=== PATIENT | female | born 1950 | race Caucasian/White ===

== ENCOUNTER 2017-05-15 11:02 | Inpatient (IN) | payer MEDICARE, MEDICAID ==
[2017-05-15 11:37] LABS: Hematocrit 36.6 % (37.0-47.0); Hemoglobin 11.7 gm/dL (12.5-16.0); Mean Corpuscular Hemoglobin 29.1 pg (27-31); Mean Platelet Volume 9.6 fl (6.0-9.5); Platelet Count 292 K/mm3 (150-450); Red Blood Count 4.02 M/mm3 (4.2-5.4); Red Cell Distribution Width 13.7 % (11.5-14.0); White Blood Count 16.5 K/mm3 (4.0-10.5)
[2017-05-15 11:39] LABS: Total Cells Counted 100
[2017-05-15] MEDS ORDERED: MORPHINE SULFATE 4 MG/ML SYRG IV ONE ×2 (11:46→12:42)
[2017-05-15] MEDS ORDERED: MORPHINE SULFATE 4 MG/ML SYRG ONE ×2 (11:49→12:40)
--- NOTE | 2017-05-15 11:52 | ERNOTE ---
Lower Extremity HPI - General Lower Extremities Pain: knee: bilateral - left is considerably worse than the right Time Seen by Provider: 05/15/17 11:17 Source: patient Exam Limitations: no limitations - Immun/Allergies/Home Medications Immunizations: IMMUNIZATION HX Immunizations Up to Date Yes History of Influenza Vaccine No Hx Pneumococcal Vaccination No Allergies/Adverse Reactions: Allergies Allergy/AdvReac Type Severity Reaction Status Date / Time adhesive tape Allergy Intermediate Hives Verified 05/15/17 11:05 Sulfa (Sulfonamide Allergy Intermediate Hives Verified 05/15/17 11:05 Antibiotics) Home Medications: HOME MEDICATIONS HYDROcodone/ACETAMINOPHEN [Hydrocodone-Acetamin 10-325 mg] 1 tab PO Q6H [Last Taken Unknown] Hydrochlorothiazide [Hydrodiuril] 25 mg PO BID 01/31/16 [Last Taken Unknown] Oxybutynin Chloride [Ditropan Xl] 10 mg PO DAILY 01/31/16 [Last Taken Unknown] Bumetanide 2 mg PO DAILY 05/15/17 [Last Taken Unknown] Furosemide [Lasix] 60 mg PO BID 05/15/17 [Last Taken Unknown] Ibuprofen 800 mg PO TID 05/15/17 [Last Taken Unknown] Lisinopril [Zestril] 2.5 mg PO DAILY 05/15/17 [Last Taken Unknown] Potassium Chloride [K-Dur] 20 meq PO DAILY 05/15/17 [Last Taken Unknown] Verapamil HCl [Verapamil ER] 100 mg PO HS 05/15/17 [Last Taken Unknown] - History of Present Illness Narrative: Patient states that while she has chronic swelling of both lower extremities with some degree of erythema that the left on his gotten markedly worse and more swollen and painful. She states this is what happens when she gets cellulitis and complains of pain moderate to severe in intensity. Occurred: other - progressive over the last 3-4 days Method of Injury: Reports: no apparent injury Loss of Consciousness: Reports: no loss of consciousness Associated Symptoms: Reports: other injuries - painful weightbearing Other Injuries: Reports: none Review of Systems - Review of Systems EYE: Present: no symptoms reported ENT: Present: no symptoms reported Respiratory: Present: no symptoms reported Cardiology: Present: no symptoms reported Gastrointestinal/Abdominal: Present: no symptoms reported Genitourinary: Present: no symptoms reported Musculoskeletal: Present: See HPI Skin: Present: no symptoms reported Neurological: Present: no symptoms reported Endocrine: Present: no symptoms reported Hematologic/Lymphatic: Present: no symptoms reported Psych: Present: no symptoms reported - Patient's Past Medical History Patient History - Medical: Obesity, Other - cellulitis Patient History - Cardiac/Respiratory: COPD Patient History - Cancer: No Hx of Cancer Patient History - Surgical Procedures: Appendectomy, , Hysterectomy, Other Patient History - Other: None LMP (females 10-50): Menopausal - Social History Living Situations: home Abuse History: No History of abuse Psych History: No pertinent hx Smoking Status: Never smoker Have you smoked in the past 12 months: No Do you dip or chew tobacco: No Alcohol Use: none Drug Use: none - Immunizations Immunizations Up to Date: Yes Hx Pneumococcal Vaccination: No History of Influenza Vaccine: No Physical Exam - Physical Exam General Appearance: Present: wd/wn, alert, moderate distress Head Exam: Present: normal inspection, no evidence of injury Eye Exam: Normal inspection: bilateral, PERRL: bilateral Ears, Nose, Throat: Present: normal ENT inspection, H, normal pharynx Neck: Present: normal inspection, nontender Respiratory: Present: no accessory muscle use, chest nontender, lungs clear, respiratory distress - mild, decreased breath sounds Cardiovascular/Chest: Present: regular rate, rhythm, no murmur, normal peripheral pulses Gastrointestinal/Abdominal: Present: normal bowel sounds, nontender, nondistended, soft, no organomegaly Rectal Exam: Present: deferred Back Exam: Present: normal inspection, normal range of motion Extremity Exam: Present: non-tender, decreased range of motion, calf tenderness , extremity edema Neurological Exam: Present: alert, oriented, normal mood/affect Skin Exam: Present: normal color, warm/dry Lymphatic Exam: Present: no adenopathy ED Progress - Results and Orders Patient's Lab Results:: I have reviewed the patient's lab results. - Vital Signs Patient's Vital Signs:: I have reviewed the patient's vital signs. Vital Signs: Vital Signs 05/15/17 11:05 Temperature 37.3 C Pulse Rate 84 Respiratory 24 H Rate Blood Pressure 127/68 O2 Sat by Pulse 92 Oximetry - X-Ray X-Ray #1 X-Ray: chest Interpretation: Reviewed by me - CT/Ultrasound CT/Ultrasound Narrative: Ultrasound of the lower extremity was reviewed by me - Progress/Reassessment Chief Complaint: Lower Extremity Pain/ Injury Plan - Plan Plan: I discussed the case with Dr. Webster and patient will be admitted for IV antibiotics, pain management and then we will have to look into some sort of possible home health care for ongoing care with her. Departure Clinical Impression: Cellulitis Qualifiers: Site of cellulitis: extremity Site of cellulitis of extremity: lower extremity Laterality: left Qualified Code(s): L03.116 - Cellulitis of left lower limb - Departure Disposition: [facility] Condition: Fair
[2017-05-15 11:53] LABS: Albumin * 2.4 gm/dl (3.4-5.0); Anion Gap 10.3 mmol/L (6.8-13.8); BUN/Creatinine Ratio 32.6 (9.0-21.6); Bilirubin, Total 0.8 mg/dL (0.0-1.1); Ca. Corrected For Albumin 9.6 mg/dL (8.4-10.2); Calcium * 8.6 mg/dL (7.9-10.9); Carbon Dioxide 29.1 mmol/L (24-32.6); Immature Granulocyte 1 (0-1); Lymphocyte 14 % (20-51); Magnesium 1.9 mg/dL (1.2-2.8); Monocyte 4 % (0-9); Neutrophil 81 % (42-75); Neutrophil # 13.4 K/mm3 (1.3-6.0); Potassium 4.4 mmol/L (3.4-4.6); Total Protein 6.9 gm/dL (6.2-8.2)
[2017-05-15 11:54] LABS: Platelet Estimate Normal (NORMAL); RBC Morphology Normal (NORMAL)
[2017-05-15 12:05] LABS: CRP 30.8 mg/dL (0.0-0.9)
[2017-05-15] MEDS ORDERED: LEVOFLOXACIN IN DEXTROSE 5 % 750 MG/150 ML BAG IV ONE (12:43)
[2017-05-15] MEDS: HYDROcodone/ACETAMINOPHEN 1 EACH TABLET PO PRN ×2 (16:49→21:53)
[2017-05-15] MEDS: MORPHINE SULFATE 4 MG/ML SYRG IV PRN (19:38)
[2017-05-15] MEDS ORDERED: HYDROCODONE PO SCH (20:45)
[2017-05-15] MEDS ORDERED: ACETAMINOPHEN PO SCH (20:45)
[2017-05-15] MEDS ORDERED: [UNRECOGNIZED DRUG - OTHER] PO SCH (20:45)
[2017-05-15] MEDS: OXYBUTYNIN CHLORIDE 5 MG TABLET PO SCH (21:53)
--- NOTE | 2017-05-15 23:26 | HP ---
Chief Complaint - Chief Complaint Date of Service: 05/15/17 Time of Service: 16:30 Chief Complaint: Left leg pain, redness History of Present Illness: Alvina is a 66 yo female with morbid obesity, COPD, and chronic lower extremity edema on diuretics. She reports over the past week increasing redness and pain in left leg. She denies any change in medication or diet. But she has worsening of activity and is unable to bear weight on her left leg due to pain. She has not had any drainage. She has a chronic wound that is treated at [place], [place] following a panniculectomy about two years ago. It has not healed but is in its usual state and is not red or worse. - Patient's Past Medical History Patient History - Medical: Obesity Patient History - Cardiac/Respiratory: COPD Patient History - Cancer: No Hx of Cancer Patient History - Surgical Procedures: Appendectomy, , Hysterectomy, Other Patient History - Other: None LMP (females 10-50): Menopausal - Family History Father Family History - Medical: No pertinent hx Family History - Cardiac/Respiratory: No pertinent hx Family History - Cancer: No pertinent family hx - Social History Living Situations: alone Abuse History: No History of abuse Psych History: No pertinent hx Smoking Status: Never smoker Have you smoked in the past 12 months: No Do you dip or chew tobacco: No Patient requests Smoking Cessation Consult: No Initiate information on Smoking Cessation: No Alcohol Use: none Drug Use: none - Immunizations Immunizations Up to Date: Yes Hx Pneumococcal Vaccination: No History of Influenza Vaccine: No Review Of Systems (GEN) - Review of Systems Generalized/Overall Review: Present: Weakness, Chills, Fever, Malaise, Fatigue EENTM: Present: No Symptoms Reported Respiratory: Present: No Symptoms Reported Cardiac: Present: No Symptoms Reported Abdominal: Present: No Symptoms Reported Genitourinary: Present: No Symptoms Reported Musculoskeletal: Present: No Symptoms Reported Neurological: Present: No Symptoms Reported Skin: Present: Change in Color - Redness to left leg Endocrine: Present: No Symptoms Reported Allergies/Adverse Reactions: Allergies Allergy/AdvReac Type Severity Reaction Status Date / Time adhesive tape Allergy Intermediate Hives Verified 05/15/17 14:47 Sulfa (Sulfonamide Allergy Intermediate Hives Verified 05/15/17 14:47 Antibiotics) Home Medications: HOME MEDICATIONS HYDROcodone/ACETAMINOPHEN [Hydrocodone-Acetamin 10-325 mg] 1 tab PO Q6H [Last Taken Unknown] Hydrochlorothiazide [Hydrodiuril] 25 mg PO BID 01/31/16 [Last Taken Unknown] Oxybutynin Chloride [Ditropan Xl] 10 mg PO DAILY 01/31/16 [Last Taken Unknown] Bumetanide 2 mg PO DAILY 05/15/17 [Last Taken Unknown] Furosemide [Lasix] 60 mg PO BID 05/15/17 [Last Taken Unknown] Ibuprofen 800 mg PO TID 05/15/17 [Last Taken Unknown] Lisinopril [Zestril] 2.5 mg PO DAILY 05/15/17 [Last Taken Unknown] Potassium Chloride [K-Dur] 20 meq PO DAILY 05/15/17 [Last Taken Unknown] Verapamil HCl [Verapamil ER] 120 mg PO HS 05/15/17 [Last Taken Unknown] Exam - Exam Vital Signs: Vital Signs - Last Taken Temp 36.7 C 05/15/17 22:59 Pulse 78 05/15/17 22:59 Resp 18 05/15/17 22:59 BP 150/62 05/15/17 22:59 Pulse Ox 96 05/15/17 22:59 Constitutional: Present: Alert, Oriented x3, Cooperative, Morbidly obese ENT Exam: Present: hearing grossly normal Eye Exam: bilateral eye: normal inspection Respiratory: Present: lungs clear, decreased breath sounds Cardiovascular/Chest: Present: regular rate, rhythm, no murmur Abdomen: Present: Normal bowel sounds, soft, nontender, nondistended, no rebound tenderness, no hepatospenomegaly Skin Exam: Present: other - Red anterior left lower leg from toes to just below left knee. No drainage. Right leg has chronic hyperpigmentation to right anterior lower leg. Appearance: Present: appropriate appearance, appropriate insight Eye contact: Present: cooperative, good eye contact, normal speech Thoughts: Present: normal thought pattern, no apparent hallucination Diagnostic Studies: Laboratory Results WBC 16.5 K/mm3 (4.0-10.5) H 05/15/17 11:30 RBC 4.02 M/mm3 (4.2-5.4) L 05/15/17 11:30 Hgb 11.7 gm/dL (12.5-16.0) L 05/15/17 11:30 Hct 36.6 % (37.0-47.0) L 05/15/17 11:30 MCV 91.0 fl (78-100) 05/15/17 11:30 MCH 29.1 pg (27-31) 05/15/17 11:30 MCHC 32.0 g/dl (32-36) 05/15/17 11:30 RDW 13.7 % (11.5-14.0) 05/15/17 11:30 Plt Count 292 K/mm3 (150-450) 05/15/17 11:30 MPV 9.6 fl (6.0-9.5) H 05/15/17 11:30 Neutrophils % (Manual) 81 % (42-75) H 05/15/17 11:30 Lymphocytes % (Manual) 14 % (20-51) L 05/15/17 11:30 Monocytes % (Manual) 4 % (0-9) 05/15/17 11:30 Immature Granulocytes 1 (0-1) 05/15/17 11:30 Neutrophils # (Manual) 13.4 K/mm3 (1.3-6.0) H 05/15/17 11:30 Lymphocytes # (Manual) 2.3 k/mm3 (1.5-3.5) 05/15/17 11:30 Monocytes # (Manual) 0.7 k/mm3 (0.0-1.0) 05/15/17 11:30 Platelet Estimate Normal (NORMAL) 05/15/17 11:30 RBC Morphology Normal (NORMAL) 05/15/17 11:30 ESR 30 mm/hr (0-15) H 05/15/17 11:30 Sodium 142 mmol/L (132-142) 05/15/17 11:30 Plasma Sodium 143 mmol/L (130-142) H 05/15/17 11:30 Potassium 4.4 mmol/L (3.4-4.6) 05/15/17 11:30 Chloride 107 mmol/L (97-106) H 05/15/17 11:30 Carbon Dioxide 29.1 mmol/L (24-32.6) 05/15/17 11:30 Anion Gap 10.3 mmol/L (6.8-13.8) 05/15/17 11:30 BUN 46 mg/dL (3-23) H 01/08/18 11:30 Creatinine 1.41 mg/dL (0.4-1.4) H 05/15/17 11:30 Est GFR (Non-Af Amer) 40 mL/min (60-130) L D 05/15/17 11:30 BUN/Creatinine Ratio 32.6 (9.0-21.6) H 05/15/17 11:30 Random Glucose 144 mg/dL (70-110) H 05/15/17 11:30 Calcium 8.6 mg/dL (7.9-10.9) 05/15/17 11:30 Calcium Adj for Albumin 9.6 mg/dL (8.4-10.2) 05/15/17 11:30 Magnesium 1.9 mg/dL (1.2-2.8) 05/15/17 11:30 Total Bilirubin 0.8 mg/dL (0.0-1.1) 05/15/17 11:30 AST 14 U/L (0-48) 05/15/17 11:30 ALT 20 U/L (19-67) 05/15/17 11:30 Alkaline Phosphatase 154 U/L (50-170) 05/15/17 11:30 C-Reactive Prot, Quant 30.8 mg/dL (0.0-0.9) H 05/15/17 11:30 Total Protein 6.9 gm/dL (6.2-8.2) 05/15/17 11:30 Albumin 2.4 gm/dl (3.4-5.0) L 05/15/17 11:30 Assessment/Plan - Narrative Narrative: Alvina is a 66 yo female with: 1) Cellulitis of Left Lower Extremity - Will treat with Levaquin. Will give hydrocodone for moderate pain and morphine for severe pain. Will monitor labs. Will bal skin to show area of cellulitis and monitor. Will admit to observation and expect 1 midnight. If improved tomorrow, controlled pain, and able to ambulate will discharge to home. 2) Acute renal failure - Creatinine 1.4 elevated above baseline. Will hold diuretics today. Will give lasix prn for edema. - Assessment/Plan (1) Cellulitis Problem: Acute Qualifiers: Site of cellulitis: extremity Site of cellulitis of extremity: lower extremity Laterality: left Qualified Code(s): L03.116 - Cellulitis of left lower limb
[2017-05-16] MEDS: MORPHINE SULFATE 4 MG/ML SYRG IV PRN ×4 (00:07→14:25)
[2017-05-16] MEDS: HYDROcodone/ACETAMINOPHEN 1 EACH TABLET PO PRN (04:23)
[2017-05-16 05:57] LABS: Hematocrit 37.1 % (37.0-47.0); Hemoglobin 11.6 gm/dL (12.5-16.0); Mean Cell Volume 93.2 fl (78-100); Mean Corpuscular Hemoglobin 29.1 pg (27-31); Mean Corpuscular Hgb Conc 31.3 g/dl (32-36); Mean Platelet Volume 9.9 fl (6.0-9.5); Neutrophil # 9.8 K/mm3 (1.3-6.0); Neutrophil % 66.2 % (42-75.0); Platelet Count 265 K/mm3 (150-450); Red Blood Count 3.98 M/mm3 (4.2-5.4); Red Cell Distribution Width 13.7 % (11.5-14.0); White Blood Count 14.8 K/mm3 (4.0-10.5)
[2017-05-16 06:19] LABS: Anion Gap 8.6 mmol/L (6.8-13.8); BUN/Creatinine Ratio 30.6 (9.0-21.6); Calcium * 8.9 mg/dL (7.9-10.9); Carbon Dioxide 29.6 mmol/L (24-32.6); Estimated Creat Clear 39.1; Potassium 4.2 mmol/L (3.4-4.6)
[2017-05-16] MEDS ORDERED: FUROSEMIDE 10 MG/ML VIAL IV ONE ×2 (07:43→09:00)
[2017-05-16] MEDS: oxyCODONE HCL/ACETAMINOPHEN 1 TAB TABLET PO PRN ×2 (08:57→19:01)
[2017-05-16] MEDS: NYSTATIN 15 APPL BTL TP SCH ×4 (08:57→20:50)
[2017-05-16] MEDS: OXYBUTYNIN CHLORIDE 5 MG TABLET PO SCH ×2 (09:39→20:49)
[2017-05-16] MEDS: POTASSIUM CHLORIDE 20 MEQ TABLET.SA PO SCH (09:39)
--- NOTE | 2017-05-16 10:35 | PN ---
Subjective - Date and Time Seen Date: 05/16/17 Time: 08:30 Subjective Narrative: Alvina reports uncontrolled pain. She is getting IV morphine and pain is still not controlled. Unable to stand on leg. Reports chills. Nursing reports rash under skin folds and breasts. Objective - Vitals Vitals: Last Vital Signs Temp 37.0 C 05/16/17 09:00 Pulse 84 05/16/17 09:53 Resp 18 05/16/17 09:00 BP 102/62 05/16/17 09:53 Pulse Ox 96 05/16/17 09:00 - Abnormal Lab Findings Abnormal Lab Findings: Abnormal Lab Results 05/16/17 05/16/17 Range/Units 05:35 05:35 WBC 14.8 H (4.0-10.5) K/mm3 RBC 3.98 L (4.2-5.4) M/mm3 Hgb 11.6 L (12.5-16.0) gm/dL MCHC 31.3 L (32-36) g/dl MPV 9.9 H (6.0-9.5) fl Immature Gran % (Auto) 10.10 H (0.001-0.429) % Immature Gran # (Auto) 1.50 H (0.000-0.0310) K/mm3 Lymphocytes % 13.9 L (20-51) % Neutrophils # 9.8 H (1.3-6.0) K/mm3 Monocytes # 1.2 H (0.0-1.0) k/mm3 BUN 38 H (3-23) mg/dL Est GFR (Non-Af Amer) 46 L (60-130) mL/min BUN/Creatinine Ratio 30.6 H (9.0-21.6) Random Glucose 126 H (70-110) mg/dL - Exam Constitutional: Present: Alert, Oriented x3, Cooperative ENT Exam: Present: hearing grossly normal Respiratory: Present: lungs clear, normal breath sounds Cardiovascular/Chest: Present: regular rate, rhythm, no murmur Abdomen: Present: Normal bowel sounds, soft, nontender, nondistended, no rebound tenderness, no hepatospenomegaly Skin Exam: Present: other - Left leg with erythema. Based on lines of demarcation the erythema looks improved Lymphatic: Present: no adenopathy Appearance: Present: appropriate appearance, appropriate insight Cauti Physician Documentation - Urinary Catheter Management Urethral (Linder) Date of Insertion: 05/15/17 Time of Insertion: 13:30 Assessment/Plan Plan Narrative: Alvina is a 66 yo female with: 1) Cellulitis of Left Lower Extremity - Treating with levaquin and erythema is improved. Pain is not controlled and is severe. Reports all >7 despite hydrocodone and morphine use. Will change hydrocodone to percocet. If this is not improved will change morphine to dilaudid. Will admit to inpatient due to cellulitis with severe pain requiring IV pain medication. 2) Acute renal failure - Creatinine 1.4 yesterday, improved to 1.2 today. Will give lasix prn. - Problems/Diagnosis (1) Cellulitis Problem: Acute Qualifiers: Site of cellulitis: extremity Site of cellulitis of extremity: lower extremity Laterality: left Qualified Code(s): L03.116 - Cellulitis of left lower limb (2) Intertrigo Problem: Acute (3) Acute renal failure Problem: Resolved (4) Respiratory failure Problem: Acute
[2017-05-16] MEDS ORDERED: LEVOFLOXACIN 750 MG TABLET PO SCH (11:00)
[2017-05-16] MEDS ORDERED: KETOROLAC TROMETHAMINE 30 MG/ML VIAL IV ONE (16:31)
[2017-05-16] MEDS: VERAPAMIL HCL 120 MG TABLET.SA PO SCH ×2 (19:38→20:48)
[2017-05-17] MEDS: oxyCODONE HCL/ACETAMINOPHEN 1 TAB TABLET PO PRN ×2 (01:01→07:55)
[2017-05-17 05:57] LABS: Hematocrit 38.1 % (37.0-47.0); Hemoglobin 11.6 gm/dL (12.5-16.0); Mean Cell Volume 93.6 fl (78-100); Mean Corpuscular Hemoglobin 28.5 pg (27-31); Mean Corpuscular Hgb Conc 30.4 g/dl (32-36); Mean Platelet Volume 9.5 fl (6.0-9.5); Platelet Count 280 K/mm3 (150-450); Red Blood Count 4.07 M/mm3 (4.2-5.4); Red Cell Distribution Width 13.6 % (11.5-14.0); White Blood Count 16.8 K/mm3 (4.0-10.5)
[2017-05-17 05:59] LABS: Total Cells Counted 100
[2017-05-17 06:02] LABS: Anion Gap 9.8 mmol/L (6.8-13.8); BUN/Creatinine Ratio 25.7 (9.0-21.6); Calcium * 8.7 mg/dL (7.9-10.9); Carbon Dioxide 32.6 mmol/L (24-32.6); Estimated Creat Clear 31.9; Potassium 4.4 mmol/L (3.4-4.6)
[2017-05-17 06:22] LABS: Band 3 % (0-2.0); Eosinophil 4 % (0-3); Immature Granulocyte 2 (0-1); Lymphocyte 12 % (20-51); Monocyte 4 % (0-9); Neutrophil 75 % (42-75); Neutrophil # 12.6 K/mm3 (1.3-6.0); Platelet Estimate Normal (NORMAL); RBC Morphology Normal (NORMAL)
--- NOTE | 2017-05-17 06:47 | PN ---
Subjective - Date and Time Seen Date: 05/17/17 Time: 06:44 Subjective Narrative: Pt examined this am. She is resting comfortable. Reports having significant pain on BLE with waking and has not been able to ambulate much. CR is elevated this morning at 1.52. No other issues according to nursing. Objective - Vitals Vitals: Last Vital Signs Temp 36.6 C 05/16/17 23:07 Pulse 76 05/16/17 23:07 Resp 16 05/16/17 23:07 BP 102/53 05/16/17 23:07 Pulse Ox 94 05/16/17 23:07 - Abnormal Lab Findings Abnormal Lab Findings: Abnormal Lab Results 05/17/17 05/17/17 Range/Units 05:35 05:35 WBC 16.8 H (4.0-10.5) K/mm3 RBC 4.07 L (4.2-5.4) M/mm3 Hgb 11.6 L (12.5-16.0) gm/dL MCHC 30.4 L (32-36) g/dl Band Neuts % (Manual) 3 H (0-2.0) % Lymphocytes % (Manual) 12 L (20-51) % Eosinophils % (Manual) 4 H (0-3) % Immature Granulocytes 2 H (0-1) Neutrophils # (Manual) 12.6 H (1.3-6.0) K/mm3 BUN 39 H (3-23) mg/dL Creatinine 1.52 H (0.4-1.4) mg/dL Est GFR (Non-Af Amer) 36 L D (60-130) mL/min BUN/Creatinine Ratio 25.7 H (9.0-21.6) Random Glucose 121 H (70-110) mg/dL - Exam Constitutional: Present: Alert, Oriented x3, Cooperative, No distress, Morbidly obese ENT Exam: Present: normal ENT inspection. Absent: nasal congestion, nasal drainage Neck: Present: full range of motion, supple, normal inspection Breasts: Present: Exam deferred Respiratory: Present: lungs clear, no accessory muscle use, No wheezing Cardiovascular/Chest: Present: normal peripheral pulses, regular rate, rhythm, no chest tenderness, no murmur Abdomen: Present: Normal bowel sounds, soft, nontender /Rectal: Present: Exam deferred Extremity: Present: normal range of motion, non-tender, normal inspection Skin Exam: Present: other - Erythema on BLE. Lymphatic: Present: no adenopathy Neurologic: Present: no motor/sensory deficits, alert, oriented x 3 Appearance: Present: appropriate appearance, appropriate insight Eye contact: Present: cooperative, good eye contact, normal speech Thoughts: Present: normal thought pattern, no apparent hallucination Cauti Physician Documentation - Urinary Catheter Management Urethral (Linder) Date of Insertion: 05/15/17 Time of Insertion: 13:30 Assessment/Plan Plan Narrative: Alvina is a 66 yo female with: 1) Cellulitis of Left Lower Extremity - Treating with levaquin and erythema is improved. Pain is not controlled and is severe. Reports all >7 despite hydrocodone and morphine use. Will change hydrocodone to percocet. If this is not improved will change morphine to dilaudid. Will admit to inpatient due to cellulitis with severe pain requiring IV pain medication. 2) Acute renal failure - Creatinine 1.4 yesterday, improved to 1.2 today. Will give lasix prn. -05/17--> Creatinine is 1.52 this am,- Hold Lasix , provide gentle IVF hydration. - Problems/Diagnosis (1) Cellulitis Problem: Acute Qualifiers: Site of cellulitis: extremity Site of cellulitis of extremity: lower extremity Laterality: left Qualified Code(s): L03.116 - Cellulitis of left lower limb (2) Intertrigo Problem: Acute (3) Respiratory failure Problem: Acute (4) Acute renal failure Problem: Resolved (5) Chronic venous insufficiency Problem: Acute (6) Ulcer of abdomen wall Problem: Acute Qualifiers: Non-pressure ulcer stage: with fat layer exposed Qualified Code(s): L98.492 - Non-pressure chronic ulcer of skin of other sites with fat layer exposed (7) Ulcer of leg, chronic, left Problem: Acute Qualifiers: Non-pressure ulcer stage: unspecified non-pressure ulcer stage Qualified Code(s): L97.929 - Non-pressure chronic ulcer of unspecified part of left lower leg with unspecified severity
[2017-05-17] MEDS: HYDROmorphone HCL 2 MG TABLET PO PRN ×3 (09:25→22:12)
[2017-05-17] MEDS: OXYBUTYNIN CHLORIDE 5 MG TABLET PO SCH ×2 (09:25→22:04)
[2017-05-17] MEDS: NYSTATIN 15 APPL BTL TP SCH ×4 (09:25→22:04)
[2017-05-17] MEDS: POTASSIUM CHLORIDE 20 MEQ TABLET.SA PO SCH (09:25)
[2017-05-17] MEDS: VANCOMYCIN HCL 2 GM in DEXTROSE 5 % IN WATER 500 ML IV SCH ×2 (11:21)
[2017-05-17] MEDS: HYDROmorphone HCL 2 MG/ML VIAL IV PRN (16:14)
[2017-05-17] MEDS ORDERED: METHYLPREDNISOLONE SOD SUCC 60 MG in WATER FOR INJ.,BACTERIOSTATIC 0 ML IV ONE (16:24)
[2017-05-17] MEDS: VERAPAMIL HCL 120 MG TABLET.SA PO SCH (22:04)
[2017-05-18] MEDS ORDERED: guaiFENesin/DEXTROMETHORPHAN 118 ML BTL PO PRN (02:07)
[2017-05-18] MEDS: HYDROmorphone HCL 2 MG TABLET PO PRN ×4 (02:29→20:15)
[2017-05-18 05:54] LABS: Hemoglobin 11.8 gm/dL (12.5-16.0); Mean Cell Volume 93.1 fl (78-100); Mean Corpuscular Hemoglobin 28.9 pg (27-31); Mean Corpuscular Hgb Conc 31.1 g/dl (32-36); Mean Platelet Volume 9.7 fl (6.0-9.5); Platelet Count 318 K/mm3 (150-450); Red Blood Count 4.08 M/mm3 (4.2-5.4); Red Cell Distribution Width 13.6 % (11.5-14.0); White Blood Count 25.2 K/mm3 (4.0-10.5)
[2017-05-18 05:56] LABS: Total Cells Counted 100
[2017-05-18 06:08] LABS: Band 4 % (0-2.0); Dohle Bodies 2+; Immature Granulocyte 1 (0-1); Lymphocyte 4 % (20-51); Monocyte 1 % (0-9); Neutrophil 90 % (42-75); Neutrophil # 22.7 K/mm3 (1.3-6.0); Platelet Estimate Normal (NORMAL); Toxic Granulation 1+
[2017-05-18 06:21] LABS: Albumin * 2.1 gm/dl (3.4-5.0); Anion Gap 11.4 mmol/L (6.8-13.8); BUN/Creatinine Ratio 28.8 (9.0-21.6); Bilirubin, Total 0.4 mg/dL (0.0-1.1); Calcium * 8.8 mg/dL (7.9-10.9); Carbon Dioxide 29.9 mmol/L (24-32.6); Potassium 5.3 mmol/L (3.4-4.6); Total Protein 7.2 gm/dL (6.2-8.2)
--- NOTE | 2017-05-18 06:30 | PN ---
Subjective - Date and Time Seen Date: 05/18/17 Time: 06:23 Subjective Narrative: Pt seen this am. Reports increased non-productive coughing in the night. Has not ambulated much due to pain on LT Leg. WBC is elevated this am at 25,200. No other acute events overnight. Objective - Vitals Vitals: Last Vital Signs Temp 37 C 05/17/17 23:34 Pulse 77 05/17/17 23:34 Resp 20 05/17/17 23:34 BP 118/64 05/17/17 23:34 Pulse Ox 95 05/17/17 23:34 - Abnormal Lab Findings Abnormal Lab Findings: Abnormal Lab Results 05/17/17 05/18/17 05/18/17 Range/Units 05:35 05:40 05:40 WBC 25.2 H D (4.0-10.5) K/mm3 RBC 4.08 L (4.2-5.4) M/mm3 Hgb 11.8 L (12.5-16.0) gm/dL MCHC 31.1 L (32-36) g/dl MPV 9.7 H (6.0-9.5) fl Neutrophils % (Manual) 90 H (42-75) % Band Neuts % (Manual) 4 H (0-2.0) % Lymphocytes % (Manual) 4 L (20-51) % Neutrophils # (Manual) 22.7 H (1.3-6.0) K/mm3 Lymphocytes # (Manual) 1.0 L (1.5-3.5) k/mm3 Potassium 5.3 H D (3.4-4.6) mmol/L BUN 40 H (3-23) mg/dL Est GFR (Non-Af Amer) 40 L (60-130) mL/min BUN/Creatinine Ratio 28.8 H (9.0-21.6) Random Glucose 181 H D (70-110) mg/dL Uric Acid 9.8 H (2.6-7.2) mg/dL Albumin 2.1 L (3.4-5.0) gm/dl - Exam Constitutional: Present: Alert, Oriented x3, Cooperative, Elderly, Obese ENT Exam: Present: normal ENT inspection. Absent: nasal congestion, nasal drainage Neck: Present: full range of motion, supple, normal inspection Breasts: Present: Exam deferred Respiratory: Present: no accessory muscle use, No wheezing Cardiovascular/Chest: Present: normal peripheral pulses, regular rate, rhythm Abdomen: Present: Normal bowel sounds, soft, nontender /Rectal: Present: Exam deferred Extremity: Present: normal range of motion, non-tender, lower extremity edema - Non- pitting edema Skin Exam: Present: warm/dry, other - Erythema on BLE Lymphatic: Present: no adenopathy Neurologic: Present: no motor/sensory deficits, alert, oriented x 3 Appearance: Present: appropriate appearance, appropriate insight Eye contact: Present: cooperative, good eye contact, normal speech Thoughts: Present: no apparent hallucination Cauti Physician Documentation - Urinary Catheter Management Urethral (Linder) Date of Insertion: 05/15/17 Time of Insertion: 13:30 Assessment/Plan Plan Narrative: Pt is a 66-yr old WF with: 1) Cellulitis of Left Lower Extremity - Erythema improved following treatment with Levaquin. However pain on LLE persisted making mobility difficult to achieve. Pain medications adjusted to percocet and Dilaudid. Uric acid level 9.8 causing suspicion of Gout. Foot X-ray obtained but it has findings concerning for Osteomyelitis. 2.) Osteomyelitis- Antibiotics changed to Vancomycin and Zosyn. MRI of the foot to confirm osteomyelitis planned for 05/18/16. Monitor labs. 2) Acute renal failure - Improving. Laboratory Tests 05/15/17 05/16/17 05/17/17 11:30 05:35 05:35 Creatinine 1.41 H 1.24 1.52 H 05/18/17 05:40 Creatinine 1.39 4.) Discharge planning: May need skilled at discharge due to prolonged immobity , weakness, illness. 5.)Chronic stable conditions: COPD, HTN, Chronic venous insufficiency. - Problems/Diagnosis (1) Cellulitis Problem: Acute Qualifiers: Site of cellulitis: extremity Site of cellulitis of extremity: lower extremity Laterality: left Qualified Code(s): L03.116 - Cellulitis of left lower limb (2) Intertrigo Problem: Acute (3) Respiratory failure Problem: Acute (4) Acute renal failure Problem: Resolved (5) Chronic venous insufficiency Problem: Acute (6) Ulcer of abdomen wall Problem: Acute Qualifiers: Non-pressure ulcer stage: with fat layer exposed Qualified Code(s): L98.492 - Non-pressure chronic ulcer of skin of other sites with fat layer exposed (7) Ulcer of leg, chronic, left Problem: Acute Qualifiers: Non-pressure ulcer stage: unspecified non-pressure ulcer stage Qualified Code(s): L97.929 - Non-pressure chronic ulcer of unspecified part of left lower leg with unspecified severity
[2017-05-18] MEDS: OXYBUTYNIN CHLORIDE 5 MG TABLET PO SCH ×2 (08:18→22:09)
[2017-05-18] MEDS: predniSONE 20 MG TABLET PO SCH (08:19)
[2017-05-18] MEDS: NYSTATIN 15 APPL BTL TP SCH ×4 (08:19→22:11)
[2017-05-18] MEDS: FUROSEMIDE 10 MG/ML VIAL IV ONE (10:31)
[2017-05-18] MEDS: VANCOMYCIN HCL 2 GM in DEXTROSE 5 % IN WATER 500 ML IV SCH ×2 (11:22)
[2017-05-18] MEDS: HYDROmorphone HCL 2 MG/ML VIAL IV PRN (12:06)
[2017-05-18] MEDS ORDERED: PIPERACILLIN SODIUM/TAZOBACTAM 3.375 GM in NORMAL SALINE 100 ML IV SCH (15:00)
[2017-05-18] MEDS: PIPERACILLIN SODIUM/TAZOBACTAM 3.375 GM in NORMAL SALINE 100 ML IV SCH (15:53)
[2017-05-18] MEDS: VERAPAMIL HCL 120 MG TABLET.SA PO SCH (22:08)
[2017-05-19] MEDS: PIPERACILLIN SODIUM/TAZOBACTAM 3.375 GM in NORMAL SALINE 100 ML IV SCH ×3 (00:35→18:45)
[2017-05-19] MEDS: HYDROmorphone HCL 2 MG TABLET PO PRN ×5 (00:45→20:40)
--- NOTE | 2017-05-19 05:50 | PN ---
Subjective - Date and Time Seen Date: 05/19/17 Time: 05:45 Subjective Narrative: Pt seen this am. She is alert and in no distress. PT saw her but she was unable to participate due to severe pain on LT foot. Awaiting MRI of the foot today to RI/RO Osteomyelitis. No other issues according to nursing. Objective - Vitals Vitals: Last Vital Signs Temp 36.8 C 05/18/17 23:13 Pulse 72 05/18/17 23:13 Resp 16 05/18/17 23:13 BP 119/60 05/18/17 23:13 Pulse Ox 93 05/18/17 23:13 - Abnormal Lab Findings Abnormal Lab Findings: Abnormal Lab Results 05/18/17 05/18/17 Range/Units 05:40 05:40 WBC 25.2 H D (4.0-10.5) K/mm3 RBC 4.08 L (4.2-5.4) M/mm3 Hgb 11.8 L (12.5-16.0) gm/dL MCHC 31.1 L (32-36) g/dl MPV 9.7 H (6.0-9.5) fl Neutrophils % (Manual) 90 H (42-75) % Band Neuts % (Manual) 4 H (0-2.0) % Lymphocytes % (Manual) 4 L (20-51) % Neutrophils # (Manual) 22.7 H (1.3-6.0) K/mm3 Lymphocytes # (Manual) 1.0 L (1.5-3.5) k/mm3 Potassium 5.3 H D (3.4-4.6) mmol/L BUN 40 H (3-23) mg/dL Est GFR (Non-Af Amer) 40 L (60-130) mL/min BUN/Creatinine Ratio 28.8 H (9.0-21.6) Random Glucose 181 H D (70-110) mg/dL Albumin 2.1 L (3.4-5.0) gm/dl - Exam Constitutional: Present: Alert, Oriented x3, Cooperative, No distress ENT Exam: Present: normal ENT inspection. Absent: nasal congestion, nasal drainage Neck: Present: non-tender, full range of motion, supple Breasts: Present: Exam deferred Respiratory: Present: no accessory muscle use, No wheezing Cardiovascular/Chest: Present: normal peripheral pulses, regular rate, rhythm, no chest tenderness Abdomen: Present: Normal bowel sounds, soft, nontender, obese /Rectal: Present: Other - Linder Catheter Extremity: Present: lower extremity edema Skin Exam: Present: other - Erythema on BLE Lymphatic: Present: no adenopathy Neurologic: Present: no motor/sensory deficits, alert, normal mood/affect Appearance: Present: appropriate appearance, appropriate insight Eye contact: Present: cooperative, good eye contact, normal speech Thoughts: Present: normal thought pattern, no apparent hallucination Cauti Physician Documentation - Urinary Catheter Management Urethral (Linder) Date of Insertion: 05/15/17 Time of Insertion: 13:30 Assessment/Plan Plan Narrative: Pt is a 66-yr old WF with: 1) Cellulitis of Left Lower Extremity - Erythema improved following treatment with Levaquin. However pain on LLE persisted making mobility difficult to achieve. Pain medications adjusted to percocet and Dilaudid. Uric acid level 9.8 causing suspicion of Gout. Foot X-ray obtained but it has findings concerning for Osteomyelitis. 2.) Osteomyelitis- Antibiotics changed to Vancomycin and Zosyn. MRI of the foot to confirm osteomyelitis planned for 05/19/16. Monitor labs. 2) Acute renal failure - Improving. Laboratory Tests 05/15/17 05/16/17 05/17/17 11:30 05:35 05:35 Creatinine 1.41 H 1.24 1.52 H 05/18/17 05:40 Creatinine 1.39 4.) Morbid Obesity- BMI 71.5 5.) Discharge planning: May need skilled at discharge due to prolonged immobity , weakness, illness. 6.)Chronic stable conditions: COPD, HTN, Chronic venous insufficiency. - Problems/Diagnosis (1) Cellulitis Problem: Acute Qualifiers: Site of cellulitis: extremity Site of cellulitis of extremity: lower extremity Laterality: left Qualified Code(s): L03.116 - Cellulitis of left lower limb (2) Intertrigo Problem: Acute (3) Respiratory failure Problem: Acute (4) Acute renal failure Problem: Resolved (5) Chronic venous insufficiency Problem: Acute (6) Ulcer of abdomen wall Problem: Acute Qualifiers: Non-pressure ulcer stage: with fat layer exposed Qualified Code(s): L98.492 - Non-pressure chronic ulcer of skin of other sites with fat layer exposed (7) Ulcer of leg, chronic, left Problem: Acute Qualifiers: Non-pressure ulcer stage: unspecified non-pressure ulcer stage Qualified Code(s): L97.929 - Non-pressure chronic ulcer of unspecified part of left lower leg with unspecified severity (8) Morbid obesity Problem: Chronic
[2017-05-19 05:57] LABS: Hematocrit 36.3 % (37.0-47.0); Hemoglobin 11.7 gm/dL (12.5-16.0); Mean Corpuscular Hemoglobin 29.3 pg (27-31); Mean Corpuscular Hgb Conc 32.2 g/dl (32-36); Mean Platelet Volume 9.7 fl (6.0-9.5); Platelet Count 321 K/mm3 (150-450); Red Blood Count 3.99 M/mm3 (4.2-5.4); Red Cell Distribution Width 13.4 % (11.5-14.0); White Blood Count 25.9 K/mm3 (4.0-10.5)
[2017-05-19 06:08] LABS: Anion Gap 8.7 mmol/L (6.8-13.8); BUN/Creatinine Ratio 34.5 (9.0-21.6); Calcium * 8.7 mg/dL (7.9-10.9); Estimated Creat Clear 34.8; Potassium 4.7 mmol/L (3.4-4.6); Total Cells Counted 100
[2017-05-19 06:24] LABS: Band 2 % (0-2.0); Immature Granulocyte 1 (0-1); Lymphocyte 9 % (20-51); Monocyte 1 % (0-9); Neutrophil 87 % (42-75); Neutrophil # 22.5 K/mm3 (1.3-6.0); Platelet Estimate Normal (NORMAL); Toxic Granulation Trace
[2017-05-19] MEDS ORDERED: FUROSEMIDE 10 MG/ML VIAL IV ONE (08:09)
[2017-05-19] MEDS: NYSTATIN 15 APPL BTL TP SCH ×4 (09:25→20:41)
[2017-05-19] MEDS: predniSONE 20 MG TABLET PO SCH (09:25)
[2017-05-19] MEDS: OXYBUTYNIN CHLORIDE 5 MG TABLET PO SCH ×2 (09:26→20:43)
[2017-05-19] MEDS: FUROSEMIDE 10 MG/ML VIAL IV ONE (09:33)
[2017-05-19] MEDS: VANCOMYCIN HCL 2 GM in DEXTROSE 5 % IN WATER 500 ML IV SCH ×2 (12:37)
[2017-05-19] MEDS: SENNOSIDES/DOCUSATE SODIUM 1 TAB TABLET PO SCH ×2 (17:47→20:48)
[2017-05-19] MEDS: VERAPAMIL HCL 120 MG TABLET.SA PO SCH (20:42)
[2017-05-20] MEDS: HYDROmorphone HCL 2 MG TABLET PO PRN ×5 (00:50→22:14)
[2017-05-20] MEDS: PIPERACILLIN SODIUM/TAZOBACTAM 3.375 GM in NORMAL SALINE 100 ML IV SCH ×4 (00:55→22:14)
--- NOTE | 2017-05-20 05:08 | PN ---
Subjective - Date and Time Seen Date: 05/20/17 Subjective Narrative: Pt seen this am. MRI of LT foot unable to be completed yesterday. Erythema on LT foot improving but still hot and tender to touch. Bowels moving well. No acute events overnight. Objective - Vitals Vitals: Last Vital Signs Temp 36.5 C 05/19/17 23:38 Pulse 64 05/19/17 23:38 Resp 18 05/19/17 23:38 BP 118/58 05/19/17 23:38 Pulse Ox 91 05/19/17 23:38 - Abnormal Lab Findings Abnormal Lab Findings: Abnormal Lab Results 05/19/17 05/19/17 Range/Units 05:40 05:40 WBC 25.9 H (4.0-10.5) K/mm3 RBC 3.99 L (4.2-5.4) M/mm3 Hgb 11.7 L (12.5-16.0) gm/dL Hct 36.3 L (37.0-47.0) % MPV 9.7 H (6.0-9.5) fl Neutrophils % (Manual) 87 H (42-75) % Lymphocytes % (Manual) 9 L (20-51) % Neutrophils # (Manual) 22.5 H (1.3-6.0) K/mm3 Potassium 4.7 H (3.4-4.6) mmol/L Carbon Dioxide 33.0 H (24-32.6) mmol/L BUN 48 H (3-23) mg/dL Est GFR (Non-Af Amer) 40 L (60-130) mL/min BUN/Creatinine Ratio 34.5 H (9.0-21.6) Random Glucose 171 H (70-110) mg/dL - Exam Constitutional: Present: Alert, Oriented x3, Cooperative, Morbidly obese ENT Exam: Present: normal ENT inspection Neck: Present: non-tender, full range of motion, supple Breasts: Present: Exam deferred Respiratory: Present: lungs clear, No wheezing Cardiovascular/Chest: Present: normal peripheral pulses, regular rate, rhythm, no murmur Abdomen: Present: Normal bowel sounds, soft, nontender, obese /Rectal: Present: Exam deferred Extremity: Present: lower extremity edema, leg pain - LT LEG, other Skin Exam: Present: other - Erythema on LLE. Lymphatic: Present: no adenopathy Neurologic: Present: no motor/sensory deficits, alert, normal mood/affect, oriented x 3 Appearance: Present: appropriate appearance, appropriate insight Thoughts: Present: normal thought pattern, no apparent hallucination Cauti Physician Documentation - Urinary Catheter Management Urethral (Linder) Date of Insertion: 05/15/17 Time of Insertion: 13:30 Assessment/Plan Plan Narrative: Ms. Gonzalez is a 66-yr pt with: 1) Cellulitis of Left Lower Extremity - Hx of chronic wound on LT leg. Erythema improved with Levaquin but due to concerns of deeper infection- worsening LT leg pain, Antibiotics switched to Zosyn and Vancomycin was added later. Pain medication adjusted to dilaudid iv /po LT foot X-ray obtained had findings concerning for Osteomyelitis. MRI with sedation of the LT foot was planned for 05/19, however, the test results were technically limited and non-diagnostic as pt could not be still during the exam. Will therefore plan for Bone Scan on Monday 05/22 2.) Osteomyelitis- questionable. Is well covered with Vancomycin and Zosyn. Monitor labs. 2) Acute renal failure - Given Lasix. has Improved. BMP in am. Laboratory Tests 05/15/17 05/16/17 05/17/17 11:30 05:35 05:35 Creatinine 1.41 H 1.24 1.52 H 05/18/17 05:40 Creatinine 1.39 4.) Morbid Obesity- BMI 71.5 5.) Discharge planning: May need skilled at discharge due to prolonged immobity , weakness, illness. 6.)Chronic stable conditions: COPD HTN Chronic venous insufficiency. - Problems/Diagnosis (1) Cellulitis Problem: Acute Qualifiers: Site of cellulitis: extremity Site of cellulitis of extremity: lower extremity Laterality: left Qualified Code(s): L03.116 - Cellulitis of left lower limb (2) Intertrigo Problem: Acute (3) Respiratory failure Problem: Acute (4) Acute renal failure Problem: Resolved (5) Chronic venous insufficiency Problem: Acute (6) Ulcer of abdomen wall Problem: Acute Qualifiers: Non-pressure ulcer stage: with fat layer exposed Qualified Code(s): L98.492 - Non-pressure chronic ulcer of skin of other sites with fat layer exposed (7) Ulcer of leg, chronic, left Problem: Acute Qualifiers: Non-pressure ulcer stage: unspecified non-pressure ulcer stage Qualified Code(s): L97.929 - Non-pressure chronic ulcer of unspecified part of left lower leg with unspecified severity (8) Morbid obesity Problem: Chronic
[2017-05-20 05:45] LABS: Hemoglobin 12.4 gm/dL (12.5-16.0); Mean Cell Volume 89.8 fl (78-100); Mean Corpuscular Hemoglobin 29.3 pg (27-31); Mean Corpuscular Hgb Conc 32.6 g/dl (32-36); Mean Platelet Volume 9.6 fl (6.0-9.5); Platelet Count 333 K/mm3 (150-450); Red Blood Count 4.23 M/mm3 (4.2-5.4); Red Cell Distribution Width 13.5 % (11.5-14.0); White Blood Count 22.6 K/mm3 (4.0-10.5)
[2017-05-20 05:59] LABS: Total Cells Counted 100
[2017-05-20 06:00] LABS: Anion Gap 8.8 mmol/L (6.8-13.8); BUN/Creatinine Ratio 34.7 (9.0-21.6); Calcium * 8.7 mg/dL (7.9-10.9); Carbon Dioxide 35.3 mmol/L (24-32.6); Estimated Creat Clear 32.3; Potassium 4.1 mmol/L (3.4-4.6)
[2017-05-20 06:48] LABS: Neutrophil 92 % (42-75)
[2017-05-20 06:49] LABS: Atypical (Reactive) Lymph 2 % (0-2); Eosinophil 2 % (0-3); Lymphocyte 2 % (20-51); Monocyte 2 % (0-9); Neutrophil # 20.8 K/mm3 (1.3-6.0)
[2017-05-20 06:50] LABS: Platelet Estimate Normal (NORMAL)
[2017-05-20 06:56] LABS: RBC Morphology Normal (NORMAL)
[2017-05-20] MEDS: HYDROmorphone HCL 2 MG/ML VIAL IV PRN (07:44)
[2017-05-20] MEDS: NYSTATIN 15 APPL BTL TP SCH ×4 (09:43→20:28)
[2017-05-20] MEDS: predniSONE 20 MG TABLET PO SCH (09:44)
[2017-05-20] MEDS: OXYBUTYNIN CHLORIDE 5 MG TABLET PO SCH ×2 (09:44→20:27)
[2017-05-20] MEDS: VANCOMYCIN HCL 2 GM in DEXTROSE 5 % IN WATER 500 ML IV SCH ×2 (12:11)
[2017-05-20] MEDS: VANCOMYCIN HCL 1.75 GM in DEXTROSE 5 % IN WATER 500 ML IV SCH ×2 (19:11)
[2017-05-20] MEDS: SENNOSIDES/DOCUSATE SODIUM 1 TAB TABLET PO SCH (20:26)
[2017-05-20] MEDS: VERAPAMIL HCL 120 MG TABLET.SA PO SCH (20:26)
[2017-05-21] MEDS: HYDROmorphone HCL 2 MG TABLET PO PRN ×4 (02:40→22:09)
[2017-05-21] MEDS: HYDROmorphone HCL 2 MG/ML VIAL IV PRN (05:18)
[2017-05-21 05:39] LABS: Hemoglobin 12.4 gm/dL (12.5-16.0); Mean Cell Volume 90.3 fl (78-100); Mean Corpuscular Hemoglobin 28.7 pg (27-31); Mean Corpuscular Hgb Conc 31.8 g/dl (32-36); Mean Platelet Volume 10.1 fl (6.0-9.5); Platelet Count 338 K/mm3 (150-450); Red Blood Count 4.32 M/mm3 (4.2-5.4); Red Cell Distribution Width 13.4 % (11.5-14.0); White Blood Count 24.3 K/mm3 (4.0-10.5)
[2017-05-21 05:43] LABS: Total Cells Counted 100
--- NOTE | 2017-05-21 05:48 | PN ---
Subjective - Date and Time Seen Date: 05/21/17 Time: 05:44 Subjective Narrative: Pt examined this am. Complaints about swelling on rt hand 2 digits. Says she cannot bear weight on LT leg due to pain. No other acute events. Objective - Vitals Vitals: Last Vital Signs Temp 37.0 C 05/20/17 22:57 Pulse 102 H 05/20/17 22:57 Resp 18 05/20/17 22:57 BP 129/58 05/20/17 22:57 Pulse Ox 99 05/20/17 22:57 - Abnormal Lab Findings Abnormal Lab Findings: Abnormal Lab Results 05/20/17 05/20/17 05/20/17 Range/Units 05:30 05:30 10:50 WBC 22.6 H (4.0-10.5) K/mm3 Hgb 12.4 L (12.5-16.0) gm/dL MCHC (32-36) g/dl MPV 9.6 H (6.0-9.5) fl Neutrophils % (Manual) 92 H (42-75) % Lymphocytes % (Manual) 2 L (20-51) % Neutrophils # (Manual) 20.8 H (1.3-6.0) K/mm3 Lymphocytes # (Manual) 0.5 L (1.5-3.5) k/mm3 Carbon Dioxide 35.3 H (24-32.6) mmol/L BUN 52 H (3-23) mg/dL Creatinine 1.50 H (0.4-1.4) mg/dL Est GFR (Non-Af Amer) 37 L (60-130) mL/min BUN/Creatinine Ratio 34.7 H (9.0-21.6) Random Glucose 158 H (70-110) mg/dL Vancomycin Trough 22.4 H (10.0-20.0) mcg/mL 05/21/17 Range/Units 05:10 WBC 24.3 H (4.0-10.5) K/mm3 Hgb 12.4 L (12.5-16.0) gm/dL MCHC 31.8 L (32-36) g/dl MPV 10.1 H (6.0-9.5) fl Neutrophils % (Manual) (42-75) % Lymphocytes % (Manual) (20-51) % Neutrophils # (Manual) (1.3-6.0) K/mm3 Lymphocytes # (Manual) (1.5-3.5) k/mm3 Carbon Dioxide (24-32.6) mmol/L BUN (3-23) mg/dL Creatinine (0.4-1.4) mg/dL Est GFR (Non-Af Amer) (60-130) mL/min BUN/Creatinine Ratio (9.0-21.6) Random Glucose (70-110) mg/dL Vancomycin Trough (10.0-20.0) mcg/mL - Exam Constitutional: Present: Alert, Oriented x3, Cooperative, No distress, Obese ENT Exam: Present: normal ENT inspection. Absent: nasal congestion, nasal drainage Neck: Present: non-tender, full range of motion, supple Breasts: Present: Exam deferred Respiratory: Present: lungs clear, no accessory muscle use Cardiovascular/Chest: Present: normal peripheral pulses, regular rate, rhythm, no chest tenderness Abdomen: Present: Normal bowel sounds, soft, nontender, obese /Rectal: Present: Exam deferred Extremity: Present: lower extremity edema - 1-2 + Edema, leg pain - LT Skin Exam: Present: warm/dry, other - scattered bruising on BUE, Erythema on BLE. Lymphatic: Present: no adenopathy Neurologic: Present: no motor/sensory deficits, alert, normal mood/affect Appearance: Present: appropriate appearance, appropriate insight Eye contact: Present: cooperative, good eye contact, normal speech Thoughts: Present: normal thought pattern, no apparent hallucination Cauti Physician Documentation - Urinary Catheter Management Urethral (Linder) Date of Insertion: 05/15/17 Time of Insertion: 13:30 Assessment/Plan Plan Narrative: Ms. Gonzalez is a 66-yr pt with: 1) Cellulitis of Left Lower Extremity - Hx of chronic wound on LT leg which healed. Erythema improved with Levaquin but due to concerns of deeper infection - worsening LT leg pain, Antibiotics switched to Zosyn and Vancomycin was added later. Pain medication adjusted to dilaudid iv /po LT foot X-ray obtained had findings concerning for Osteomyelitis. MRI with sedation of the LT foot was planned for 05/19, however, the test results were technically limited and non-diagnostic as pt could not be still during the exam. Will therefore plan for Bone Scan on Monday 05/22 2.) Osteomyelitis- questionable. Is well covered with Vancomycin and Zosyn. Monitor labs. 3.) Acute renal failure - Given Lasix. has Improved. BMP in am. Laboratory Tests 05/18/17 05/19/17 05/20/17 05:40 05:40 05:30 Creatinine 1.39 1.39 1.50 H 05/21/17 05:10 Creatinine 1.34 4.) Gout- Started on Prednisone Laboratory Tests 05/17/17 05:35 Uric Acid 9.8 H 5.) Morbid Obesity- BMI 71.5 6.) Discharge planning: May need skilled at discharge due to prolonged immobility, weakness, illness. 7.)Chronic stable conditions: COPD HTN Chronic venous insufficiency. - Problems/Diagnosis (1) Cellulitis Problem: Acute Qualifiers: Site of cellulitis: extremity Site of cellulitis of extremity: lower extremity Laterality: left Qualified Code(s): L03.116 - Cellulitis of left lower limb (2) Intertrigo Problem: Acute (3) Respiratory failure Problem: Acute (4) Acute renal failure Problem: Resolved (5) Chronic venous insufficiency Problem: Acute (6) Ulcer of abdomen wall Problem: Acute Qualifiers: Non-pressure ulcer stage: with fat layer exposed Qualified Code(s): L98.492 - Non-pressure chronic ulcer of skin of other sites with fat layer exposed (7) Ulcer of leg, chronic, left Problem: Acute Qualifiers: Non-pressure ulcer stage: unspecified non-pressure ulcer stage Qualified Code(s): L97.929 - Non-pressure chronic ulcer of unspecified part of left lower leg with unspecified severity (8) Morbid obesity Problem: Chronic
[2017-05-21 05:49] LABS: Anion Gap 6.4 mmol/L (6.8-13.8); BUN/Creatinine Ratio 34.3 (9.0-21.6); Calcium * 8.6 mg/dL (7.9-10.9); Carbon Dioxide 35.7 mmol/L (24-32.6); Estimated Creat Clear 36.1; Potassium 4.1 mmol/L (3.4-4.6)
[2017-05-21 06:15] LABS: Lymphocyte 10 % (20-51); Monocyte 6 % (0-9); Neutrophil 84 % (42-75); Neutrophil # 20.4 K/mm3 (1.3-6.0); Platelet Estimate Normal (NORMAL); RBC Morphology Normal (NORMAL)
[2017-05-21] MEDS: PIPERACILLIN SODIUM/TAZOBACTAM 3.375 GM in NORMAL SALINE 100 ML IV SCH ×3 (06:18→22:11)
[2017-05-21] MEDS: predniSONE 20 MG TABLET PO SCH (08:18)
[2017-05-21] MEDS: NYSTATIN 15 APPL BTL TP SCH ×4 (08:19→20:03)
[2017-05-21] MEDS: OXYBUTYNIN CHLORIDE 5 MG TABLET PO SCH ×2 (08:19→20:03)
[2017-05-21] MEDS: HYDROPHILIC OINTMENT 454 APPL JAR TP SCH ×2 (10:50→20:02)
[2017-05-21] MEDS: INDOMETHACIN 25 MG CAPSULE PO SCH ×2 (12:42→17:10)
[2017-05-21] MEDS: VANCOMYCIN HCL 1.75 GM in DEXTROSE 5 % IN WATER 500 ML IV SCH ×2 (19:49)
[2017-05-21] MEDS: SENNOSIDES/DOCUSATE SODIUM 1 TAB TABLET PO SCH (20:02)
[2017-05-21] MEDS: VERAPAMIL HCL 120 MG TABLET.SA PO SCH (20:02)
[2017-05-22] MEDS: HYDROmorphone HCL 2 MG TABLET PO PRN ×2 (02:42→07:38)
[2017-05-22 05:58] LABS: Anion Gap 5.9 mmol/L (6.8-13.8); BUN/Creatinine Ratio 35.9 (9.0-21.6); Calcium * 8.6 mg/dL (7.9-10.9); Carbon Dioxide 36.3 mmol/L (24-32.6); Potassium 4.2 mmol/L (3.4-4.6)
--- NOTE | 2017-05-22 06:36 | PN ---
Subjective - Date and Time Seen Date: 05/22/17 Time: 06:31 Subjective Narrative: Pt seen this am. States she can move her fingers with ease and no pain. Has no other complaints. Objective - Vitals Vitals: Last Vital Signs Temp 36.6 C 05/22/17 03:03 Pulse 63 05/22/17 03:03 Resp 18 05/22/17 03:03 BP 101/49 05/22/17 03:03 Pulse Ox 91 05/22/17 03:03 - Abnormal Lab Findings Abnormal Lab Findings: Abnormal Lab Results 05/22/17 Range/Units 05:15 Carbon Dioxide 36.3 H (24-32.6) mmol/L Anion Gap 5.9 L (6.8-13.8) mmol/L BUN 47 H (3-23) mg/dL Est GFR (Non-Af Amer) 43 L (60-130) mL/min BUN/Creatinine Ratio 35.9 H (9.0-21.6) Random Glucose 171 H (70-110) mg/dL - Exam Constitutional: Present: Alert, Oriented x3, Cooperative, No distress ENT Exam: Present: normal ENT inspection, hearing grossly normal. Absent: nasal congestion, nasal drainage Neck: Present: non-tender, full range of motion, supple Breasts: Present: Exam deferred Respiratory: Present: lungs clear, No wheezing Cardiovascular/Chest: Present: normal peripheral pulses, regular rate, rhythm, no chest tenderness Abdomen: Present: Normal bowel sounds, soft, nontender, obese /Rectal: Present: Exam deferred Extremity: Present: normal range of motion, non-tender, normal inspection, no pedal edema, lower extremity edema Skin Exam: Present: other - erythema on LT leg Lymphatic: Present: no adenopathy Neurologic: Present: alert, normal mood/affect, oriented x 3 Appearance: Present: appropriate appearance, appropriate insight Eye contact: Present: cooperative, good eye contact, normal speech Thoughts: Present: normal thought pattern, no apparent hallucination Cauti Physician Documentation - Urinary Catheter Management Urethral (Linder) Date of Insertion: 05/15/17 Time of Insertion: 13:30 Date of Removal: 05/21/17 Time of Removal: 11:50 Assessment/Plan Plan Narrative: Ms. Gonzalez is a 66-yr pt with: 1) Cellulitis of Left Lower Extremity - Hx of chronic wound on LT leg which healed. Erythema improved with Levaquin but due to concerns of deeper infection - worsening LT leg pain, Antibiotics switched to Zosyn and Vancomycin was added later. Pain medication adjusted to dilaudid iv /po LT foot X-ray obtained had findings concerning for Osteomyelitis. MRI with sedation of the LT foot was planned for 05/19, however, the test results were technically limited and non-diagnostic as pt could not be still during the exam. Will therefore plan for Bone Scan on Monday 05/22 2.) Osteomyelitis- questionable. Is well covered with Vancomycin and Zosyn. Monitor labs. 3.) Acute renal failure - Given Lasix. has Improved. BMP in am. Laboratory Tests 05/21/17 05:10 Creatinine 1.34 05/22/17 05:15 Creatinine 1.31 4.) Gout- Started on Prednisone and indomethacin on 05/21- helping with the joint pain in fingers. Laboratory Tests 05/17/17 05:35 Uric Acid 9.8 H 5.) Morbid Obesity- BMI 71.5 6.) Discharge planning: May need skilled at discharge due to prolonged immobility, weakness, illness. 7.)Chronic stable conditions: COPD HTN Chronic venous insufficiency. - Problems/Diagnosis (1) Cellulitis Problem: Acute Qualifiers: Site of cellulitis: extremity Site of cellulitis of extremity: lower extremity Laterality: left Qualified Code(s): L03.116 - Cellulitis of left lower limb (2) Intertrigo Problem: Acute (3) Respiratory failure Problem: Acute (4) Acute renal failure Problem: Resolved (5) Chronic venous insufficiency Problem: Acute (6) Ulcer of abdomen wall Problem: Acute Qualifiers: Non-pressure ulcer stage: with fat layer exposed Qualified Code(s): L98.492 - Non-pressure chronic ulcer of skin of other sites with fat layer exposed (7) Ulcer of leg, chronic, left Problem: Acute Qualifiers: Non-pressure ulcer stage: unspecified non-pressure ulcer stage Qualified Code(s): L97.929 - Non-pressure chronic ulcer of unspecified part of left lower leg with unspecified severity (8) Morbid obesity Problem: Chronic
[2017-05-22] MEDS: PIPERACILLIN SODIUM/TAZOBACTAM 3.375 GM in NORMAL SALINE 100 ML IV SCH ×2 (07:29→15:33)
[2017-05-22] MEDS: HYDROPHILIC OINTMENT 454 APPL JAR TP SCH ×2 (08:35→22:09)
[2017-05-22] MEDS: OXYBUTYNIN CHLORIDE 5 MG TABLET PO SCH ×2 (08:36→22:09)
[2017-05-22] MEDS: predniSONE 20 MG TABLET PO SCH (08:36)
[2017-05-22] MEDS: INDOMETHACIN 25 MG CAPSULE PO SCH ×3 (08:36→19:34)
[2017-05-22] MEDS: NYSTATIN 15 APPL BTL TP SCH ×4 (08:37→22:10)
[2017-05-22] MEDS: VANCOMYCIN HCL 1.75 GM in DEXTROSE 5 % IN WATER 500 ML IV SCH ×2 (21:01)
[2017-05-22] MEDS: VERAPAMIL HCL 120 MG TABLET.SA PO SCH (22:09)
[2017-05-22] MEDS: SENNOSIDES/DOCUSATE SODIUM 1 TAB TABLET PO SCH ×2 (22:09→22:14)
[2017-05-23] MEDS: PIPERACILLIN SODIUM/TAZOBACTAM 3.375 GM in NORMAL SALINE 100 ML IV SCH ×4 (00:11→22:54)
[2017-05-23] MEDS: FLUCONAZOLE 100 MG TABLET PO SCH ×2 (05:04→09:14)
[2017-05-23] MEDS: OXYBUTYNIN CHLORIDE 5 MG TABLET PO SCH ×2 (09:11→21:33)
[2017-05-23] MEDS: INDOMETHACIN 25 MG CAPSULE PO SCH ×3 (09:11→17:28)
[2017-05-23] MEDS: predniSONE 20 MG TABLET PO SCH (09:11)
[2017-05-23] MEDS: NYSTATIN 15 APPL BTL TP SCH ×4 (09:15→20:08)
[2017-05-23] MEDS: HYDROPHILIC OINTMENT 454 APPL JAR TP SCH ×2 (09:15→21:33)
[2017-05-23] MEDS: HYDROmorphone HCL 2 MG TABLET PO PRN ×2 (12:09→23:15)
[2017-05-23] MEDS ORDERED: VANCOMYCIN HCL LEVEL XX ONE (19:00)
[2017-05-23] MEDS: VANCOMYCIN HCL 1.75 GM in DEXTROSE 5 % IN WATER 500 ML IV SCH ×2 (20:35)
[2017-05-23] MEDS: VERAPAMIL HCL 120 MG TABLET.SA PO SCH (21:32)
[2017-05-23] MEDS: SENNOSIDES/DOCUSATE SODIUM 1 TAB TABLET PO SCH (21:33)
--- NOTE | 2017-05-23 23:18 | PN ---
Subjective - Date and Time Seen Date: 05/23/17 Time: 17:00 Subjective Narrative: Alvina reports she cannot put weight on her left foot. Left 3rd finger still very swollen. Seen by Dr. Esposito today who reviewed MRI and examined patient today. Believe symptoms to be gout related. Not likely osteo or charcot. No fever, chills, N/v. Objective - Vitals Vitals: Last Vital Signs Temp 36.7 C 05/23/17 19:13 Pulse 71 05/23/17 21:32 Resp 18 05/23/17 19:13 BP 140/62 05/23/17 21:32 Pulse Ox 94 05/23/17 19:13 - Abnormal Lab Findings Abnormal Lab Findings: Abnormal Lab Results 05/23/17 Range/Units 19:00 Vancomycin Trough 22.3 H (10.0-20.0) mcg/mL - Exam Constitutional: Present: Alert, Oriented x3, Morbidly obese ENT Exam: Present: hearing grossly normal Respiratory: Present: lungs clear, normal breath sounds Cardiovascular/Chest: Present: regular rate, rhythm, no murmur, edema - 2+ Abdomen: Present: Normal bowel sounds, soft, nontender, nondistended Skin Exam: Present: normal color, other - Erythema resolved Cauti Physician Documentation - Urinary Catheter Management Urethral (Linedr) Date of Insertion: 05/15/17 Time of Insertion: 13:30 Date of Removal: 05/21/17 Time of Removal: 11:50 Assessment/Plan Plan Narrative: 1) Cellulitis Improved. Has completed 1 week of vanco, will DC. Continue zosyn for a full week then DC. 2) Gout - Left foot pain and finger pain. Continue steroid and indomethicin. Improving. Encouraged patient to begin ambulating. Will have her work with PT. If safe, ok to discharge to home in the next 1-3 days. - Problems/Diagnosis (1) Cellulitis Problem: Acute Qualifiers: Site of cellulitis: extremity Site of cellulitis of extremity: lower extremity Laterality: left Qualified Code(s): L03.116 - Cellulitis of left lower limb (2) Intertrigo Problem: Acute (3) Acute renal failure Problem: Resolved (4) Respiratory failure Problem: Acute
[2017-05-24] MEDS: PIPERACILLIN SODIUM/TAZOBACTAM 3.375 GM in NORMAL SALINE 100 ML IV SCH ×2 (06:41→15:21)
[2017-05-24 08:10] LABS: Hematocrit 38.6 % (37.0-47.0); Hemoglobin 12.1 gm/dL (12.5-16.0); Mean Cell Volume 91.3 fl (78-100); Mean Corpuscular Hemoglobin 28.6 pg (27-31); Mean Corpuscular Hgb Conc 31.3 g/dl (32-36); Mean Platelet Volume 10.1 fl (6.0-9.5); Neutrophil # 16.5 K/mm3 (1.3-6.0); Platelet Count 369 K/mm3 (150-450); Red Blood Count 4.23 M/mm3 (4.2-5.4); Red Cell Distribution Width 13.6 % (11.5-14.0); White Blood Count 20.4 K/mm3 (4.0-10.5)
[2017-05-24 08:19] LABS: Anion Gap 8.8 mmol/L (6.8-13.8); BUN/Creatinine Ratio 33.9 (9.0-21.6); Bilirubin, Total 0.4 mg/dL (0.0-1.1); Ca. Corrected For Albumin 10.1 mg/dL (8.4-10.2); Calcium * 8.8 mg/dL (7.9-10.9); Carbon Dioxide 33.8 mmol/L (24-32.6); Potassium 4.6 mmol/L (3.4-4.6)
[2017-05-24] MEDS: HYDROPHILIC OINTMENT 454 APPL JAR TP SCH ×2 (08:21→20:39)
[2017-05-24] MEDS: FLUCONAZOLE 100 MG TABLET PO SCH (08:21)
[2017-05-24] MEDS: INDOMETHACIN 25 MG CAPSULE PO SCH ×3 (08:22→16:33)
[2017-05-24] MEDS: predniSONE 20 MG TABLET PO SCH (08:22)
[2017-05-24] MEDS: NYSTATIN 15 APPL BTL TP SCH ×4 (08:22→20:40)
[2017-05-24] MEDS: OXYBUTYNIN CHLORIDE 5 MG TABLET PO SCH ×2 (08:22→20:41)
--- NOTE | 2017-05-24 11:45 | CONS ---
[facility] - General Date of Service: 05/23/17 Narrative: Patient was admitted with lower extremity cellulitis. Was placed on ABX that did not seem to be improving her symptoms, so was switched to Vancomycin and Zosyn and her redness appears now to be showing improvement. She has, however, continue to have complaints of significant pain with weightbearing, bilateral feet. States they feel on fire when she tries to apply any weight on them. Did have recent diagnosis of gout with uric acid level of 9.8. States that she has been on steriod medications which has helped symptoms in her hands, however not her feet. Does have h/o arthritis and was receiving monthly injections of "some kind of steroid" from her primary care physician, Dr. Rosa Flannery. Xray concerning for osteomyelitis of the 5th metatarsal head, however MRI results, while mostly inconclusive due to movement, did not show any concerns for osteo in this area. I was consulted for further evaluation to determine if patient would be able to proceed with PT to begin weightbearing/walking. States that she is not going to a nursing facility for rehabilitation. She was walking prior to coming to the hospital and wants to walk again. She was only walking from her home to her car to last picker groceries, then back in to her home. Would ambulate to use the restroom as well. Source: patient Exam Limitations: no limitations - History of Present Illness Allergies/Adverse Reactions: Allergies adhesive tape Allergy (Intermediate, Verified 05/15/17 14:47) Hives Sulfa (Sulfonamide Antibiotics) Allergy (Intermediate, Verified 05/15/17 14:47) Hives Home Medications: Home Medications Medication Instructions Recorded Last Taken HYDROcodone/ACETAMINOPHEN 1 tab PO Q6H 01/31/16 Unknown [Hydrocodone-Acetamin 10-325 mg] Hydrochlorothiazide [Hydrodiuril] 25 mg PO BID 01/31/16 Unknown Oxybutynin Chloride [Ditropan Xl] 10 mg PO DAILY 01/31/16 Unknown Bumetanide 2 mg PO DAILY 05/15/17 Unknown Furosemide [Lasix] 60 mg PO BID 05/15/17 Unknown Ibuprofen 800 mg PO TID 05/15/17 Unknown Lisinopril [Zestril] 2.5 mg PO DAILY 05/15/17 Unknown Potassium Chloride [K-Dur] 20 meq PO DAILY 05/15/17 Unknown Verapamil HCl [Verapamil ER] 120 mg PO HS 05/15/17 Unknown - Patient's Past Medical History Patient History - Medical: Obesity Patient History - Cardiac/Respiratory: COPD Patient History - Cancer: No Hx of Cancer Patient History - Surgical Procedures: Appendectomy, , Hysterectomy, Other Patient History - Other: None LMP (females 10-50): Menopausal - Family History Father Family History - Medical: No pertinent hx Family History - Cardiac/Respiratory: No pertinent hx Family History - Cancer: No pertinent family hx - Social History Living Situations: alone Abuse History: No History of abuse Psych History: No pertinent hx Smoking Status: Never smoker Have you smoked in the past 12 months: No Do you dip or chew tobacco: No Patient requests Smoking Cessation Consult: No Initiate information on Smoking Cessation: No Alcohol Use: none Drug Use: none - Immunizations Immunizations Up to Date: Yes Hx Pneumococcal Vaccination: No History of Influenza Vaccine: No Procedures DRAINAGE OF BLADDER WITH DRAINAGE DEVICE, VIA OPENING (05/16/17) Medications - Medications Current Medications: Current Medications Guaifenesin/Dextromethorphan (Robitussin-Dm) 10 ml PO Q4H PRN PRN Reason: Cough Stop: 06/17/17 02:08 Last Admin: 05/18/17 02:26 Dose: 10 ml Hydromorphone HCl (Dilaudid) 1 mg IV Q2H PRN PRN Reason: Severe Pain (pain scale 7-10) Stop: 06/15/17 16:31 Last Admin: 05/21/17 05:18 Dose: 1 mg Hydromorphone HCl (Dilaudid) 4 mg PO Q4H PRN PRN Reason: Moderate Pain (pain scale 4-6) Stop: 06/16/17 08:56 Last Admin: 05/23/17 23:15 Dose: 4 mg Piperacillin Sod/Tazobactam (Sod 3.375 gm/ Sodium Chloride) 100 mls @ 25 mls/ hr IV Q8H DONI PRN Reason: Protocol Stop: 05/24/17 16:01 Last Admin: 05/24/17 06:41 Dose: 25 mls/hr Indomethacin (Indocin) 50 mg PO TIDWM [facility] Stop: 06/20/17 13:01 Last Admin: 05/24/17 08:22 Dose: 50 mg Multi-Ingredient Ointment (Aquaphilic Ointment) 1 appl TP BID DONI Stop: 06/20/17 10:01 Last Admin: 05/24/17 08:21 Dose: 1 appl Nystatin (Mycostatin Powder) 1 appl TP QID DONI Stop: 06/15/17 09:01 Last Admin: 05/24/17 08:22 Dose: 1 appl Oxybutynin Chloride (Ditropan) 5 mg PO BID DONI Stop: 06/14/17 21:01 Last Admin: 05/24/17 08:22 Dose: 5 mg Prednisone (Prednisone) 40 mg PO DAILY DONI Stop: 06/17/17 09:01 Last Admin: 05/24/17 08:22 Dose: 40 mg Senna/Docusate Sodium (Senokot-S) 2 tab PO HS [facility] Stop: 06/18/17 17:31 Last Admin: 05/23/17 21:33 Dose: Not Given Verapamil HCl (Calan Sr) 120 mg PO HS [facility] Stop: 06/14/17 21:01 Last Admin: 05/23/17 21:32 Dose: 120 mg Review of Systems - Review of Systems Musculoskeletal: Present: Joint Pain Skin: Present: Other - Redness of b/l LE Physical Examination - Exam Narrative: Xrays reviewed showing diffuse osteoarthritic changes of the midfoot with some dorsal spurring noted. There is some destruction of the head of the 5th metatarsal bone with "pencil in cup" appearance, likely secondary to gout as there are no ulcerations present. Pt denies ulcerations to this area. Vital Signs: Vital Signs - Last Taken Temp 36.8 C 05/23/17 14:30 Pulse 68 05/23/17 14:30 Resp 20 05/23/17 14:30 BP 133/67 05/23/17 14:30 Pulse Ox 92 05/23/17 14:30 O2 Oxygen Delivery Method Room Air Constitutional: Present: Alert, Oriented x3, Cooperative, Morbidly obese Peripheral Pulses: dorsalis-pedis (R): 1+ - Difficult to evaluate due to edema, dorsalis-pedis (L): 1+ - Difficult to evaluate due to edema Extremity: Present: lower extremity edema, other - No tenderness elicited on exam of b/l LE. Pain only noted when attempting to bear weight, pain localized to plantar feet - burning sensation. Skin Exam: Present: other - Cellulitis to b/l LE that appears to be improving significantly with current ABX as noted by previous demarcation of extent of redness. - Results and Findings: Lab/Microbiology results last 24 hrs: Abnormal/Pending Laboratory Last 24 HRS 05/24/17 05/24/17 05/23/17 08:00 08:00 19:00 WBC 20.4 H Hgb 12.1 L MCHC 31.3 L MPV 10.1 H Immature Gran % (Auto) 3.50 H Immature Gran # (Auto) 0.72 H Neutrophils % 81.0 H Lymphocytes % 9.1 L Neutrophils # 16.5 H Monocytes # 1.1 H Carbon Dioxide 33.8 H BUN 57 H Creatinine 1.68 H Est GFR (Non-Af Amer) 33 L D BUN/Creatinine Ratio 33.9 H Random Glucose 195 H Albumin 2.0 L Vancomycin Trough 22.3 H - Assessments/Findings (1) Foot pain, bilateral Diagnosis(s): Likely secondary to combination of gout, cellulits, and midfoot arthritis. Ok to proceed with PT. Continue medications per PCP. Will follow as needed. Problem: Acute (2) Gout Diagnosis(s): Continue prednisone and indocin as prescribed. Problem: Acute (3) Cellulitis Diagnosis(s): Is improving with current ABX. Plan to switch to oral per PCP. Problem: Acute Qualifiers: Site of cellulitis: extremity Site of cellulitis of extremity: lower extremity Laterality: left Qualified Code(s): L03.116 - Cellulitis of left lower limb
[2017-05-24] MEDS: HYDROmorphone HCL 2 MG TABLET PO PRN (16:33)
[2017-05-24] MEDS: VERAPAMIL HCL 120 MG TABLET.SA PO SCH (20:40)
[2017-05-24] MEDS: SENNOSIDES/DOCUSATE SODIUM 1 TAB TABLET PO SCH (20:40)
--- NOTE | 2017-05-24 22:33 | PN ---
Subjective - Date and Time Seen Date: 05/24/17 Time: 16:42 Subjective Narrative: Pain is tolerable. But has not been able to put weight on foot. Discussed with podiatry who reviewed case and imaging and feels this is more cellulitis and gout and not osteomyelitis. No fever, chills, nausea, or vomiting. Objective - Vitals Vitals: Last Vital Signs Temp 36.8 C 05/24/17 19:00 Pulse 70 05/24/17 20:40 Resp 18 05/24/17 19:00 BP 113/74 05/24/17 20:40 Pulse Ox 91 05/24/17 19:00 - Abnormal Lab Findings Abnormal Lab Findings: Abnormal Lab Results 05/24/17 05/24/17 Range/Units 08:00 08:00 WBC 20.4 H (4.0-10.5) K/mm3 Hgb 12.1 L (12.5-16.0) gm/dL MCHC 31.3 L (32-36) g/dl MPV 10.1 H (6.0-9.5) fl Immature Gran % (Auto) 3.50 H (0.001-0.429) % Immature Gran # (Auto) 0.72 H (0.000-0.0310) K/mm3 Neutrophils % 81.0 H (42-75.0) % Lymphocytes % 9.1 L (20-51) % Neutrophils # 16.5 H (1.3-6.0) K/mm3 Monocytes # 1.1 H (0.0-1.0) k/mm3 Carbon Dioxide 33.8 H (24-32.6) mmol/L BUN 57 H (3-23) mg/dL Creatinine 1.68 H (0.4-1.4) mg/dL Est GFR (Non-Af Amer) 33 L D (60-130) mL/min BUN/Creatinine Ratio 33.9 H (9.0-21.6) Random Glucose 195 H (70-110) mg/dL Albumin 2.0 L (3.4-5.0) gm/dl - Exam Constitutional: Present: Alert, Oriented x3, Cooperative ENT Exam: Present: hearing grossly normal Respiratory: Present: lungs clear, normal breath sounds Cardiovascular/Chest: Present: regular rate, rhythm, no murmur Abdomen: Present: Normal bowel sounds, soft, nontender, nondistended Skin Exam: Present: other - Mild redness to left leg, erythema gradually fading. Cauti Physician Documentation - Urinary Catheter Management Urethral (Linder) Date of Insertion: 05/15/17 Time of Insertion: 13:30 Date of Removal: 05/24/17 Time of Removal: 15:30 Assessment/Plan Plan Narrative: Continue antibiotics for a full week course. Podiatry does not believe she has osteomyelitis. Will continue current treatment. Per podiatry, ok to ambulate on foot. Will now work on strengthening with PT. - Problems/Diagnosis (1) Cellulitis Problem: Acute Qualifiers: Site of cellulitis: extremity Site of cellulitis of extremity: lower extremity Laterality: left Qualified Code(s): L03.116 - Cellulitis of left lower limb (2) Intertrigo Problem: Acute (3) Acute renal failure Problem: Resolved (4) Respiratory failure Problem: Resolved
[2017-05-25] MEDS: HYDROmorphone HCL 2 MG TABLET PO PRN ×5 (00:45→21:50)
[2017-05-25] MEDS ORDERED: MAG HYDROX/ALUMINUM HYD/SIMETH 148 ML BTL PO ONE (01:02)
[2017-05-25] MEDS ORDERED: MAG HYDROX/ALUMINUM HYD/SIMETH 30 ML UDC ONE (02:05)
[2017-05-25] MEDS ORDERED: MAG HYDROX/ALUMINUM HYD/SIMETH 30 ML UDC PO ONE (02:07)
[2017-05-25] MEDS: OXYBUTYNIN CHLORIDE 5 MG TABLET PO SCH ×2 (10:02→21:41)
[2017-05-25] MEDS: NYSTATIN 15 APPL BTL TP SCH ×4 (10:02→21:41)
[2017-05-25] MEDS: predniSONE 20 MG TABLET PO SCH (10:02)
[2017-05-25] MEDS: HYDROPHILIC OINTMENT 454 APPL JAR TP SCH ×2 (10:04→21:40)
[2017-05-25] MEDS: SENNOSIDES/DOCUSATE SODIUM 1 TAB TABLET PO SCH (21:41)
[2017-05-25] MEDS: VERAPAMIL HCL 120 MG TABLET.SA PO SCH (21:42)
--- NOTE | 2017-05-25 23:48 | PN ---
Subjective - Date and Time Seen Date: 05/25/17 Time: 12:17 Subjective Narrative: Walking a little more each day. Pain with ambulation but getting better. No fever, chills, nausea, vomiting. Objective - Vitals Vitals: Last Vital Signs Temp 36.4 C L 05/25/17 21:00 Pulse 74 05/25/17 21:42 Resp 20 05/25/17 21:00 BP 132/50 05/25/17 21:42 Pulse Ox 91 05/25/17 21:00 - Exam Constitutional: Present: Alert, Oriented x3, Cooperative ENT Exam: Present: hearing grossly normal Respiratory: Present: lungs clear, normal breath sounds Cardiovascular/Chest: Present: regular rate, rhythm, no murmur Abdomen: Present: Normal bowel sounds, soft, nontender, nondistended Skin Exam: Present: normal color, warm/dry, no cyanosis Cauti Physician Documentation - Urinary Catheter Management Urethral (Linder) Date of Insertion: 05/15/17 Time of Insertion: 13:30 Date of Removal: 05/24/17 Time of Removal: 15:30 Assessment/Plan Plan Narrative: Cellulitis resolved. Pain improving, ambulation improving. Continue steroids and PT. - Problems/Diagnosis (1) Gout Problem: Acute Qualifiers: Gout site: ankle Laterality: left (2) Cellulitis Problem: Acute Qualifiers: Site of cellulitis: extremity Site of cellulitis of extremity: lower extremity Laterality: left Qualified Code(s): L03.116 - Cellulitis of left lower limb (3) Intertrigo Problem: Acute (4) Acute renal failure Problem: Resolved (5) Respiratory failure Problem: Resolved
[2017-05-26] MEDS: HYDROmorphone HCL 2 MG TABLET PO PRN ×3 (01:48→09:59)
[2017-05-26] MEDS: predniSONE 20 MG TABLET PO SCH (09:08)
[2017-05-26] MEDS: OXYBUTYNIN CHLORIDE 5 MG TABLET PO SCH ×2 (09:09→20:17)
[2017-05-26] MEDS: NYSTATIN 15 APPL BTL TP SCH ×4 (09:10→20:20)
[2017-05-26] MEDS: HYDROPHILIC OINTMENT 454 APPL JAR TP SCH ×2 (09:11→20:22)
[2017-05-26] MEDS: HYDROcodone/ACETAMINOPHEN 1 EACH TABLET PO SCH ×2 (13:15→20:18)
[2017-05-26] MEDS: VERAPAMIL HCL 120 MG TABLET.SA PO SCH (20:19)
[2017-05-26] MEDS: SENNOSIDES/DOCUSATE SODIUM 1 TAB TABLET PO SCH (20:21)
--- NOTE | 2017-05-26 23:41 | PN ---
Subjective - Date and Time Seen Date: 05/26/17 Time: 12:30 Subjective Narrative: No fever, chills, nausea, vomiting. Pain continues but tolerable. Walking improving day by day. Objective - Vitals Vitals: Last Vital Signs Temp 36.7 C 05/26/17 23:33 Pulse 72 05/26/17 23:33 Resp 20 05/26/17 23:33 BP 115/59 05/26/17 23:33 Pulse Ox 91 05/26/17 23:33 - Exam Constitutional: Present: Alert, Oriented x3, Cooperative ENT Exam: Present: hearing grossly normal Respiratory: Present: lungs clear, normal breath sounds Cardiovascular/Chest: Present: regular rate, rhythm, no murmur Abdomen: Present: Normal bowel sounds, soft, nontender, nondistended Skin Exam: Present: normal color, warm/dry, no cyanosis Cauti Physician Documentation - Urinary Catheter Management Urethral (Linder) Date of Insertion: 05/15/17 Time of Insertion: 13:30 Date of Removal: 05/24/17 Time of Removal: 15:30 Assessment/Plan Plan Narrative: Continue to work on strengthening. Once able to safely ambulate ok to discharge to home. Pain is improving. Antibiotics completed. Plan to discharge on allopurinol to prevent gout flare. - Problems/Diagnosis (1) Gout Problem: Acute Qualifiers: Gout site: ankle Laterality: left (2) Cellulitis Problem: Acute Qualifiers: Site of cellulitis: extremity Site of cellulitis of extremity: lower extremity Laterality: left Qualified Code(s): L03.116 - Cellulitis of left lower limb (3) Intertrigo Problem: Acute (4) Acute renal failure Problem: Resolved (5) Respiratory failure Problem: Resolved
[2017-05-27] MEDS: HYDROcodone/ACETAMINOPHEN 1 EACH TABLET PO SCH ×4 (01:57→20:24)
[2017-05-27] MEDS: predniSONE 20 MG TABLET PO SCH (08:09)
[2017-05-27] MEDS: NYSTATIN 15 APPL BTL TP SCH ×4 (08:09→20:26)
[2017-05-27] MEDS: HYDROPHILIC OINTMENT 454 APPL JAR TP SCH ×2 (08:09→20:27)
[2017-05-27] MEDS: OXYBUTYNIN CHLORIDE 5 MG TABLET PO SCH ×2 (08:09→20:26)
--- NOTE | 2017-05-27 20:06 | PN ---
Subjective - Date and Time Seen Date: 05/27/17 Time: 20:02 Subjective Narrative: Patient feels she has a fracture on lateral aspect of her LT foot as feels she has a 'bubble on the bottom of her foot when she bears weight. Ambulates with walker. wanting ibuprofen with other pain meds. Objective - Review of Systems Generalized/Overall Review: Denies: Weakness, Chills, Fever Respiratory: Denies: Cough, Shortness of Breath Musculoskeletal Complaints: Reports: Other - .pain in LT foot - Vitals Vitals: Last Vital Signs Temp 36.7 C 05/27/17 19:08 Pulse 71 05/27/17 19:08 Resp 18 05/27/17 19:08 BP 131/82 05/27/17 19:08 Pulse Ox 93 05/27/17 19:08 - Exam Constitutional: Present: Morbidly obese, Looks Older than stated age - a ENT Exam: Present: hearing grossly normal, dry mucous membranes Neck: Present: normal inspection, trachea midline Respiratory: Present: decreased breath sounds. Absent: accessory muscle use - status: Cardiovascular/Chest: Present: regular rate, rhythm Abdomen: Present: obese - MORBIDLY Extremity: Present: other - vascular stasis lower extremities, pedal pulses intact. Neurologic: Present: oriented x 3 Cauti Physician Documentation - Urinary Catheter Management Urethral (Linder) Date of Insertion: 05/15/17 Time of Insertion: 13:30 Date of Removal: 05/24/17 Time of Removal: 15:30 Assessment/Plan Plan Narrative: 1 GOUT: On prednisone 60 mg daily. 2. CELLULITIS: was Rxed with vancomycin and Zosyn. 3. PAIN - BILATERAL FEET: Most likely a combination of cellulitis, osteoarthritis and gout. 4. MORBID OBESITY: BMI-71.0. - Problems/Diagnosis (1) Gout Problem: Acute (2) Foot pain, bilateral Problem: Acute (3) Morbid obesity Problem: Chronic
[2017-05-27] MEDS: VERAPAMIL HCL 120 MG TABLET.SA PO SCH (20:25)
[2017-05-27] MEDS: SENNOSIDES/DOCUSATE SODIUM 1 TAB TABLET PO SCH (20:26)
[2017-05-28] MEDS: HYDROcodone/ACETAMINOPHEN 1 EACH TABLET PO SCH ×4 (02:07→20:11)
[2017-05-28] MEDS: NYSTATIN 15 APPL BTL TP SCH ×4 (08:46→20:12)
[2017-05-28] MEDS: predniSONE 20 MG TABLET PO SCH (08:46)
[2017-05-28] MEDS: OXYBUTYNIN CHLORIDE 5 MG TABLET PO SCH ×2 (08:46→20:12)
[2017-05-28] MEDS: HYDROPHILIC OINTMENT 454 APPL JAR TP SCH ×2 (08:46→20:12)
[2017-05-28] MEDS: VERAPAMIL HCL 120 MG TABLET.SA PO SCH (20:12)
[2017-05-28] MEDS: SENNOSIDES/DOCUSATE SODIUM 1 TAB TABLET PO SCH (20:13)
[2017-05-29] MEDS: HYDROcodone/ACETAMINOPHEN 1 EACH TABLET PO SCH ×3 (01:36→13:03)
[2017-05-29 05:50] LABS: Hematocrit 39.4 % (37.0-47.0); Hemoglobin 12.5 gm/dL (12.5-16.0); Mean Cell Volume 90.8 fl (78-100); Mean Corpuscular Hemoglobin 28.8 pg (27-31); Mean Corpuscular Hgb Conc 31.7 g/dl (32-36); Mean Platelet Volume 10.4 fl (6.0-9.5); Neutrophil # 11.5 K/mm3 (1.3-6.0); Neutrophil % 76.7 % (42-75.0); Platelet Count 487 K/mm3 (150-450); Red Blood Count 4.34 M/mm3 (4.2-5.4); Red Cell Distribution Width 13.6 % (11.5-14.0)
[2017-05-29 06:09] LABS: Anion Gap 10.2 mmol/L (6.8-13.8); BUN/Creatinine Ratio 32.1 (9.0-21.6); Calcium * 9.2 mg/dL (7.9-10.9); Carbon Dioxide 31.2 mmol/L (24-32.6); Estimated Creat Clear 44.4; Potassium 5.4 mmol/L (3.4-4.6)
[2017-05-29] MEDS: OXYBUTYNIN CHLORIDE 5 MG TABLET PO SCH (09:23)
[2017-05-29] MEDS: predniSONE 20 MG TABLET PO SCH (09:23)
[2017-05-29] MEDS: NYSTATIN 15 APPL BTL TP SCH ×2 (09:24→13:04)
[2017-05-29] MEDS: HYDROPHILIC OINTMENT 454 APPL JAR TP SCH (09:24)
--- NOTE | 2017-05-29 09:53 | DS ---
(1) Gout Problem: Acute Qualifiers: Gout site: ankle Laterality: left (2) Cellulitis Problem: Acute Qualifiers: Site of cellulitis: extremity Site of cellulitis of extremity: lower extremity Laterality: left Qualified Code(s): L03.116 - Cellulitis of left lower limb (3) Intertrigo Problem: Acute (4) Acute renal failure Problem: Resolved (5) Respiratory failure Problem: Chronic Qualifiers: Chronicity: chronic Respiratory failure complication: hypoxia Qualified Code(s): J96.11 - Chronic respiratory failure with hypoxia (6) COPD (chronic obstructive pulmonary disease) Problem: Chronic Description of Stay: Alvina is a 66 yo female admitted with left lower extremity cellulitis. She is morbidly obese with COPD and chronic respiratory failure with home oxygen use at times. She was started on Levaquin for cellulitis. She was having severe left leg and foot pain that required IV dilaudid. Due to the need for IV pain control she was made inpatient status. Xrays were done showing possible osteomyelitis. Attempted to obtain an MRI however pain and restlessness in her leg prevented good imaging even with the assistance of anesthesia for sedation. I thought about using a bone scan to get further information but the patient's weight was above our limit for the table used in bone scans. She had no improvement with levaquin and was changed to vancomycin and then zosyn was added for broader coverage and possibility of osteomyelitis. I consulted podiatry to review xray and the imaging that we had on MRI. Podiatry did not feel there was an obvious osteomyelitis and suspected gout. Podiatry gave the ok for the patient to ambulate on her foot and we began working with therapy to strengthen. She was also treated with steroids for gout. Gradually cellulitis resolved on vancomycin and zosyn and she completed a weeks course. With continue work on ambulation she was able to improve from being unable to put weight on her left foot to being able to ambulate safely enough for home discharge. At discharge she will be continued on a prednisone taper and will begin Allopurinol to prevent further gout flares. Procedures Performed: none Discharge Disposition: Home self care Disposition: Home self-care Condition: Fair Discharge Activity: Activity as tolerated Discharge Diet: Low salt Referrals: Barber Flannery DO [Non Staff Physicians] - One Week Problem Oriented Discharge Instructions to Patient/Family: Gout, [id number] Additional Patient Instructions (free text): Has [facility] ongoing please call and fax discharge orders. Home PT and OT. Follow up with Dr. Flannery on 06-05-17 @ 1:00pm. Also has [facility] ([facility]) please fax discharge information to [phone] vee Trevino. Prescriptions (Any new or edited meds): Allopurinol [Zyloprim] 100 mg PO DAILY #30 tablet Bumetanide 2 mg PO DAILY #30 tablet Duloxetine HCl [Cymbalta] 30 mg PO DAILY #30 capsule. Furosemide [Lasix] 80 mg PO DAILY #30 tablet Hydrochlorothiazide [Hydrodiuril] 25 mg PO BID #60 tablet HYDROcodone/ACETAMINOPHEN [Hydrocodone-Acetamin 10-325 mg] 1 tab PO Q6H #120 tablet Lisinopril [Zestril] 2.5 mg PO DAILY #30 tablet predniSONE [Prednisone] 40 mg PO DAILY #25 tablet Sennosides/Docusate Sodium [Senokot-S] 2 tab PO HS #60 tablet Complete Home Medications List: Complete Home Medication List: Oxybutynin Chloride [Ditropan Xl] 10 mg PO DAILY 01/31/16 Verapamil HCl [Verapamil ER] 120 mg PO HS 05/15/17 Allopurinol [Zyloprim] 100 mg PO DAILY #30 tablet 05/29/17 Bumetanide 2 mg PO DAILY #30 tablet 05/29/17 Duloxetine HCl [Cymbalta] 30 mg PO DAILY #30 capsule. 05/29/17 Furosemide [Lasix] 80 mg PO DAILY #30 tablet 05/29/17 HYDROcodone/ACETAMINOPHEN [Hydrocodone-Acetamin 10-325 mg] 1 tab PO Q6H #120 tablet 05/29/17 Hydrochlorothiazide [Hydrodiuril] 25 mg PO BID #60 tablet 05/29/17 Lisinopril [Zestril] 2.5 mg PO DAILY #30 tablet 05/29/17 Sennosides/Docusate Sodium [Senokot-S] 2 tab PO HS #60 tablet 05/29/17 predniSONE [Prednisone] 40 mg PO DAILY #25 tablet 05/29/17
[2017-05-29 10:42] VITALS: BP 131/60
--- NOTE | 2017-05-29 14:32 | PN ---
Subjective - Date and Time Seen Date: 05/28/17 Time: 14:00 Subjective Narrative: The patient feels her foot is better in terms of less pain/swelling. She is concerned regarding going home/going to a custodial the next day. Her son and his are willing to stay with her if she goes home. She prefers that over custodial placement. Objective - Review of Systems Generalized/Overall Review: Denies: Weakness, Chills Respiratory: Reports: Shortness of Breath - Chronic. Denies: Cough Musculoskeletal Complaints: Reports: Gout - Foot pain LT greater than RT - Vitals Vitals: Vital Signs 05/28/17 07:36 Temperature 36.2 C L Pulse Rate 65 Blood Pressure 140/58 O2 Sat PO 94% Resp Rate 18/min - Abnormal Lab Findings Abnormal Lab Findings: Lab Results - Exam Constitutional: Present: Alert, Oriented x3, Cooperative, Middle aged, Morbidly obese, Looks Older than stated age ENT Exam: Present: hearing grossly normal, moist mucous membranes Neck: Present: normal inspection, trachea midline Respiratory: Present: decreased breath sounds - bilaterallly due to morbid obesity Cardiovascular/Chest: Present: regular rate, rhythm. Absent: tachycardia Abdomen: Present: Normal bowel sounds, soft - morbidly obese. Extremity: Present: other - vascular stasis present LT >RT; mild warmth in ankle , no open areas. Cauti Physician Documentation - Urinary Catheter Management Urethral (Linder) Date of Insertion: 05/15/17 Time of Insertion: 13:30 Date of Removal: 05/24/17 Time of Removal: 15:30 Assessment/Plan Plan Narrative: 1 GOUT: On prednisone 60 mg daily. Possible d/c in AM. 2. CELLULITIS: was Rxed with vancomycin and Zosyn. 3. PAIN - BILATERAL FEET: Most likely a combination of cellulitis, osteoarthritis and gout. 4. MORBID OBESITY: BMI-71.0. - Problems/Diagnosis (1) Gout Problem: Acute Qualifiers: Gout site: ankle Laterality: left (2) Foot pain, bilateral Problem: Acute (3) Morbid obesity Problem: Chronic
== END 2017-05-29 14:45 | disposition home health service (06) | DRG 603 ==
LOC: ER 11:02 → MS 13:30 → UNDOADMOB 13:30 → MS 13:47 → OBSVTOIN 05-16 10:38
PROVIDERS: ADMIT Family Medicine; ATTEND Family Medicine
PROC: 0T9B70Z Drainage of Bladder with Drainage Device, Via Natural or Artificial Opening (ICD-10-PCS; principal; 2017-05-15)
DX: Z88.2 Allergy status to sulfonamides; E66.01 Morbid (severe) obesity due to excess calories; Z99.81 Dependence on supplemental oxygen; L97.822 Non-pressure chronic ulcer of other part of left lower leg with fat layer exposed; L03.90 Cellulitis, unspecified; J44.9 Chronic obstructive pulmonary disease, unspecified; Z68.45 Body mass index [BMI] 70 or greater, adult; J96.11 Chronic respiratory failure with hypoxia; L98.492 Non-pressure chronic ulcer of skin of other sites with fat layer exposed; M10.9 Gout, unspecified; L30.4 Erythema intertrigo; N17.9 Acute kidney failure, unspecified; Z71.3 Dietary counseling and surveillance; L03.116 Cellulitis of left lower limb
CPT/HCPCS: 36415; 51702; 71045; 73630; 73721; 80048; 80053; 80202; 83735; 84132; 84550; 85007; 85025; 85652; 86140; 87040; 93971; 96365; 96375; 97110; 97116; 97161; 97165; 97530; 97535; 99285; G0378